=== PATIENT | male | born 1950 | race Caucasian/White ===

== ENCOUNTER 2024-09-09 16:13 | Emergency (ER) | payer OTHER, MEDICARE, SELFPAY ==
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
[2024-09-09 16:07] VITALS: BP 182/95; PULSE 63; RESP 18; TEMP 36.8; O2SAT 97
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
[2024-09-09 17:30] VITALS: BP 166/83; PULSE 53; RESP 15; O2SAT 94
--- OUTSIDE RECORDS SUMMARY | 2024-09-09 17:52 | XMS_ITS ---
Author Organization [facility] Office Address [address] [address] [place] [address] Care Team Providers Care Housekeeper Caregiver Name Role Phone Satya Porter Unavailable [phone] PROBLEMS Problem Type ICD Code Onset Dates Problem Status W/U Status Risk SNOMED Code Notes Problem Sleep apnea, unspecified (G47.30) Active confirmed Sleep apnea (96002269) Problem Pure hyperglyceridemia (E78.1) Active confirmed Pure hyperglyceridemia (963283859) Encounters Encounter Location Date Provider Diagnosis [facility] [address] [place] [address] 08/14/2024 Satya Porter Chronic kidney disea se, stage 3 unspecified N18.30 ; Proteinuria, unspecified R80.9 ; Renal osteodystrophy N25.0 ; Secondary hyperparathyroidism, not elsewhere classified E21.1 ; Urinary tract infection, site not specified N39.0 ; Type 2 diabetes mellitus with diabetic chronic kidney disease E11.22 ; Sleep apnea, unspecified G47.30 and Pure hyperglyceridemia E78.1 ASSESSMENTS Encounter Date Diagnosis Assessment Notes Treatment Notes Treatment Clinical Notes Section Notes 08/14/2024 Chronic kidney disease, stage 3 unspecified (ICD-10 - N18.30) 08/14/2024 Proteinuria, unspecified (ICD-10 - R80.9) 08/14/2024 Renal osteodystrophy (ICD-10 - N25.0) 08/14/2024 Secondary hyperparathyroidism, not elsewhere classified (ICD-10 - E21.1) 08/14/2024 Urinary tract infection, site not specified (ICD-10 - N39.0) 08/14/2024 Type 2 diabetes mellitus with diabetic chronic kidney disease (ICD-10 - E11.22) 08/14/2024 Sleep apnea, unspecified (ICD-10 - G47.30) 08/14/2024 Pure hyperglyceridemia (ICD-10 - E78.1) PLAN OF TREATMENT Next Appt Details Provider Name:Satya Porter , 11/13/2024 02:00:00 PM, [address] [facility], [place], [address], Progress Notes * AIDA BLUNTOB:1950 (74 yo M)Acc No.[id number]:08/14/2024 Progress Notes Patient: JOSSELYN BLUNT Provider: MD MACHELLE, F.A.C.P, F.A.S.N. :1950 Age:74 Y Sex:Male Date:08/14/2024 [place] [address] Subjective: * Chief Complaints: * * Medical History: Objective: Assessment: * Assessment: 1. Chronic kidney disease, stage 3 unspecified - N18.30 (Primary) 2. Proteinuria, unspecified - R80.9 3. Renal osteodystrophy - N25.0 4. Secondary hyperparathyroidism, not elsewhere classified - E21.1 5. Urinary tract infection, site not specified - N39.0 6. Type 2 diabetes mellitus with diabetic chronic kidney disease - E11.22 7. Sleep apnea, unspecified - G47.30 8. Pure hyperglyceridemia - E78.1 Plan: * Treatment: * Billing Information: * Visit Code: 92949 Office Visit, Est Pt., Level 4. * Procedure Codes: * Sign off status: Pending * Provider: MD MACHELLE, Heidi.Yaquelin.C.P, F.A.S.N. Date: 08/14/2024
--- OUTSIDE RECORDS SUMMARY | 2024-09-09 17:52 | XMS_ITS | Continuity of Care Document ---
Author Organization [facility] Address [address] [place] [address] Phone Care Team Providers Care Continuous Miner Operator Helper Name Role Phone Kar Ovalle MD Unavailable Unavailable Advance Directives Directive Yes / No Effective Date File Name No Information Encounters Encounter Description Practice Location Reason(s) For Visit Diagnoses Date Provider Providers Copied on Encounter [facility], [address], [place], [place], [address], [place] tel:[phone] [facility] No Information Vasquez Lakhani. [address] [place], [place], [address] , [place]. tel:[phone] Family History Family Member Type Diagnosis Age At Onset No Information Payers Payer name Insurance type Covered constitution party ID Authoriza tion(s) No Information Social History Type Description Quantity Date Captured Comments Sex Male Smoking Status No Information Chief Complaint And Reason For Visit No Information Reason For Referral Reason For Referral No Information History Of Present Illness Encounter Date Complaint History Of Prese nt Illness No Information Functional Status Date Functional Assessmen t No Information Instructions Date Instruction Additional Infor mation No Information Assessments Type Assessment Date No Information Patient Care Teams Name Effective Dates (start - stop) Status Members No Information
--- OUTSIDE RECORDS SUMMARY | 2024-09-09 17:52 | XMS_ITS ---
Author Organization [facility] Address [address] [place] [address] Care Team Providers Care Automotive Electrician Helper Name Role Phone GermanYonnySatya Unavailable [phone] MEDICATIONS Medication SIG (Take, Route, Frequency, Duration) Notes Start Date End Date Status Vitamin D (Ergocalciferol) 1.25 MG (16338 UT) TAKE 1 CAPSULE BY MOUTH ONCE A WEEK FOR 90 DAYS. for 90 Active Calcitriol 0.25 MCG TAKE 1 CAPSULE BY MO UTH EVERY DAY for 90 Active PROBLEMS Problem Type ICD Code Onset Dates Problem Status W/U Status Risk SNOMED Code Notes Problem Type 2 diabetes mellitus with diabetic chronic kidney disease (E11.22) Active confirmed Diabetic renal disease (315189442) Encounters Encounter Location Date Provider Diagnosis [facility] [address] [place] [address] 02/21/2024 Satya Porter Chronic kidney disea se, stage 3 unspecified N18.30 ; Type 2 diabetes mellitus with diabetic chronic kidney disease E11.22 ; Proteinuria, unspecified R80.9 ; Renal osteodystrophy N25.0 ; Secondary hyperparathyroidism, not elsewhere classified E21.1 ; Type 2 diabetes mellitus with hyperglycemia E11.65 and Urinary tract infection, site not specified N39.0 ASSESSMENTS Encounter Date Diagnosis Assessment Notes Treatment Notes Treatment Clinical Notes Section Notes 02/21/2024 Chronic kidney disease, stage 3 unspecified (ICD-10 - N18.30) 02/21/2024 Type 2 diabetes mellitus with diabetic chronic kidney disease (ICD-10 - E11.22) 02/21/2024 Proteinuria, unspecified (ICD-10 - R80.9) 02/21/2024 Renal osteodystrophy (ICD-10 - N25.0) 02/21/2024 Secondary hyperparathyroidism , not elsewhere classified (ICD-10 - E21.1) 02/21/2024 Type 2 diabetes mellitus with hyperglycemia (ICD-10 - E11.65) 02/21/2024 Urinary tract infection, site not specified (ICD-10 - N39.0) PLAN OF TREATMENT Next Appt Details Provider Name:Satya Porter , 11/13/2024 02:00:00 PM, [address] [facility], [place], [address], Progress Notes * AIDA BLUNTOB:1950 (74 yo M)Acc No.[id number]:02/21/2024 Progress Notes Patient: JOSSELYN BLUNT Provider: MD MACHELLE, Heidi.Yaquelin.C.P, F.A.S.N. :1950 Age:74 Y Sex:Male Date:02/21/2024 Address:[place] [address] Subjective: * Chief Complaints: * * Medical History: * Medications: Taking Vitamin D (Ergocalciferol) 1.25 MG (17029 UT) Capsule TAKE 1 CAPSULE BY MOUTH ONCE A WEEK FOR 90 DAYS. , Taking Calcitriol 0.25 MCG Capsule TAKE 1 CAPSULE BY MOUTH EVERY DAY Objective: Assessment: * Assessment: 1. Chronic kidney disease, stage 3 unspecified - N18.30 (Primary) 2. Type 2 diabetes mellitus with diabetic chronic kidney disease - E11.22 3. Proteinuria, unspecified - R80.9 4. Renal osteodystrophy - N25.0 5. Secondary hyperparathyroidism, not elsewhere classified - E21.1 6. Type 2 diabetes mellitus with hyperglycemia - E11.65 7. Urinary tract infection, site not specified - N39.0 Plan: * Treatment: * Billing Information: * Visit Code: 30816 Office Visit, Est Pt., Level 4. * Procedure Codes: * Sign off status: Pending * Provider: MD MACHELLE, Heidi.Yaquelin.C.P, F.A.S.N. Date: 02/21/2024
--- OUTSIDE RECORDS SUMMARY | 2024-09-09 17:52 | XMS_ITS | Data Portability ---
Author Organization [facility], Main Office Address [address] [place] [address] Care Team Providers Care Manager Art Name Role Phone ARMANDO CLARK Primary Care Provider ARMANDO CLARK Referring Provider Assessment Encounter Date Assessment Date Assessment LastModified by Organization Details LastModified Time 09/06/2022 09/06/2022 HPI: 72-year-old male came in today for evaluation of his right knee pain. His pain started last fall when he was golfing and stepped in a soft spot and twisted on the right knee. Since that time he has been having pain in anterior medial aspect of the right knee. Some days worse another. Days where he is on his feet for most the day he will have more pain at night. He is having no episodes of locking or catching in the knee. Patient is on Xarelto 20 mg daily also has chronic kidney disease and therefore unable to take anti-inflammatori es. He does take occasional Tylenol which does not seem to help. Patient has been using an [id number] compression sleeve on the knee and he feels that this does give him some relief. Patient has had no previous problems with the right knee. No previous surgeries or injuries. Physical exam: 72-year-old male alert. He walks with minimal limp. He is 5 ft 10 and 241 lb his BMI is 34.6. He has a mild effusion in the right knee. Hip range motion is full without discomfort. Moderate tenderness over the mid medial joint line, no lateral joint line tenderness. No tenderness over the posterior medial joint line. Minimal pain with patellofemoral grind. There is no increased swelling in either lower extremity. 2+ dorsalis pedis pulse in foot. After ChloraPrep was used on skin 20 mg Kenalog and 3 cc of 0.5% ropivacaine was injected into the right knee. Risk of infection discussed. Impression: 72-year-old male who has moderate medial compartment osteoarthritis on the PA flexion view. He did have a twisting injury last February and there is always the possibility he could have a meniscus tear causing his symptoms. I think this is less likely given his complaints of when he is having his symptoms. He is not a candidate for anti-inflammatori es. I discussed the option of cortisone injection which she would like to try today. After the injection he noticed very quick improvement of the symptoms in his knee from the ropivacaine. Hopefully once the cortisone starts to work he will have continued improvement of his symptoms. We talked about injections and these can be done every 3 months on an as-needed basis. I would like see him back in a month to make sure he is doing well. If he is doing very well he can call and cancel. 30 minutes was spent in treatment patient more half of this in [id number] conversation [email or web address] Not available 09/06/2022 11:10:22 Plan of Treatment Reminders Order Date Submit Date Provider Last Modified By Organization Details Last Modified Time Details Appointments None recorded. Lab None recorded. Referral None recorded. Procedures injection/a spiration joint/bursa (PROC) - in office procedure, administere d by provider 2022 023 [email or web address] In-Office Order, Internal Use Only DO Not Attach Compendium DO Not Attach Compendium, Do Not Delete/merge, [id number] 3 11:00:16 Surgeries None recorded. Imaging XR, knee 2022 023 [email or web address] [facility] [place], [address], [place], [address], 3 16:20:26 Medication Orders Kenalog 10 mg/mL suspension for injection 2022 023 [email or web address] [facility] [address], [address], 3 11:55:01 ropivacaine (PF) 5 mg/mL (0.5 %) injection solution 2022 023 [email or web address] [facility] [address] In [facility], [place], [address], 11:55:01 Patient TargetsNo targets recorded. Patient InstructionsNo instructions recorded. Reason for Referral None Reported. Results Created Date Observation Date Name Description Value Unit Range Abnormal Flag Note LastModifiedBy Organization Detail LastModifiedTime 09/07/19 23 XR, knee No observ ation record ed. [email or web address] [facility] [place] [address], [place], [address], 09/06/2022 11:07:05 Result Notes None recorded. Problems Name Problem SNOMED Code Status Onset Date Resolution Date Notes Provider Name and Address Organization Details Recorded Time Pain of right knee joint 686461572858747 Active 2022 YAZMIN Babin [employer] 09:47:22 Problem Notes None recorded. Procedures Surgical History Date Name Laterality Status Provider Name and Address Organization Details Recorded Time Carpal tunnel surgery completed YAZMIN Babin [facility] 09/06/2022 09:45:39 Imaging Results Imaging Date Name Status LastModified by Organiz ation Details LastModified Time 09/06/2022 XR, knee completed [email or web address] [facility] [place] [address], [place], [address], 09/06/2022 11:07:05 Procedure Notes None recorded. Medical Equipment None Reported. Allergies No known drug allergies Medications Name Sig Start Date Stop Date Status Note LastModified by Organization Details LastModified Time citalopram 40 mg tablet TAKE 1 TABLET BY MOUTH EVERY DAY active Not Available Not Available No t Available azithromyci n 250 mg tablet TAKE 2 TABLETS BY MOUTH TODAY, THEN TAKE 1 TABLET DAILY FOR 4 DAYS 09/06 completed Not Available Not Available Not Available tizanidine 4 mg tablet TAKE 1 TABLET BY MOUTH EVERY 6 HOURS NEEDED FOR MUSCLE SPASMS. 09/06 completed Not Available Not Available Not Available benzonatate 200 mg capsule TAKE 1 CAPSULE BY MOUTH THREE TIMES A DAY NEEDED FOR COUGH 09/06 completed Not Available Not Available Not Available prednisone 20 mg tablet TAKE 3 TABLETS DAILY FOR 5 DAYS THEN 2 TABS DAILY FOR 2 DAYS THEN 1 TAB DAILY FOR 2 DAYS 09/06 completed Not Available Not Available Not Available fluorouraci l 5 % topical cream APPLY TWICE A DAY X 4 WEEKS TO THE SCALP AND X 3 WEEKS TO THE SKIN IN FRONT AND BEHIND THE EARS 09/06 completed Not Available Not Available Not Available Zyrtec 10 mg tablet Take 1 tablet every day by oral route. active Not Available Not Available No t Available simvastatin 40 mg tablet TAKE 1 TABLET BY MOUTH EVERY DAY AT NIGHT active Not Available Not Available No t Available pramipexole 0.5 mg tablet TAKE 1 TO 2 TABLETS BY MOUTH EVERY DAY LATE IN THE AFTERNOON active Not Available Not Available No t Available amoxicillin 875 mg tablet TAKE 1 TABLET BY MOUTH TWICE A DAY FOR 10 DAYS 09/06 completed Not Available Not Available Not Available trazodone 100 mg tablet TAKE 1-2 TABLETS BY MOUTH NIGHTLY FOR INSOMNIA active Not Available Not Available No t Available Kenalog 10 mg/mL suspension for injection in office 2022 active [facility]: 0003- 0494- 20 Not Available Not Available Not Available buspirone 10 mg tablet TAKE 1 TABLET BY MOUTH TWICE A DAY active Not Available Not Available No t Available gabapentin 300 mg capsule TAKE 1 CAPSULE BY MOUTH THREE TIMES A DAY active Not Available Not Available No t Available ergocalcife rol (vitamin D2) 1,250 mcg (50,000 unit) capsule TAKE 1 CAPSULE BY MOUTH ONCE A WEEK FOR 90 DAYS. active Not Available Not Available No t Available calcitriol 0.25 mcg capsule TAKE 1 CAPSULE BY MOUTH EVERY DAY active Not Available Not Available No t Available amoxicillin 875 mg-potassiu m clavulanate 125 mg tablet TAKE 1 TABLET BY MOUTH TWICE A DAY FOR 10 DAYS 09/06 completed Not Available Not Available Not Available Tylenol 650 mg tablet,exte nded release Take 2 tablets every 8 hours by oral route. active Not Available Not Available No t Available Fish Oil active Not Available Not Avai lable Not Available PreserVisio n AREDS active Not Available Not Available Not Available Xarelto active Not Available Not Avail able Not Available ropivacaine (PF) 5 mg/mL (0.5 %) injection solution in office 2022 active Not Available Not Available Not Avai lable Vitals Date Recorded Body height Body mass index (BMI) Body weight Provider Name and Address Organization Details Last Updated DateTime 09/06/2022 177.8 cm 34.6 kg/m2 635276.76 g YAZMIN Babin [facility] [email or web address] [facility] 09/06/2022 09:50:02 Social History Question Answer Notes LastModified by Organizat ion Details LastModified Time Tobacco Smoking Status Never Smoker YAZMIN Babin null, [facility] [email or web address] [facility] 09/06/2022 09:45:29 What Is Your Level Of Alcohol Consumption? Moderate [email or web address] Information not available 09/06/2022 Sex: Unknown Functional Status None recorded. Mental Status None recorded. Family History Relationship Description Onset Age of this Age Resolved Age Notes LastModified by Organization Details LastModified Time Mother Family history of stroke [email or web address] Not available 2022 09:44:29 Mother Hypertensive disorder [email or web address] Not available 2022 09:44:45 Brother Diabetes mellitus Not available 2022 09:45:10 Maternal Grandmother Diabetes mellitus Not available 2022 09:45:10 Medical History Condition Response USE OF BLOOD THINNERS Y SKIN PROBLEMS Y STROKE/TIA Y Past Encounters Encounter ID Performer Location Encounter Start Date Encounter Closed Date Diagnosis/Indication Diagnosis SNOMED-CT Code Diagnosis ICD10 Code Diagnosis Note [id number] VASILIY Loza [facility] [place] [address] [place] [address] 09/06/2022 09:15:23 09/06/2022 11:24:34 Pain of right knee joint 2857392102 52964 M25.561 Health Concerns Section Related Observation LastModified by Organization Detai ls LastModified Time None Recorded Concern Status LastModified by Organization Details LastModified Time None Recorded Advance Directives Directive None Recorded Payers Encounter Date Sequence Insurance Name Policy Number Policy Dunham Covered Member ID Dunham Member ID Guarantor Name 09/06/2022 1 [place] Panfilo Conrad [id number] Panfilo Conrad 09/06/2022 2 [employer] (MEDICARE SUPPLEMENT) Panfilo Conrad [id number] Panfilo Conrad
--- OUTSIDE RECORDS SUMMARY | 2024-09-09 17:52 | XMS_ITS ---
Author Organization [facility] Address [address] [facility] [address] [place] [address] Care Team Providers Care Financial Officer Name Role Phone Satya Porter Unavailable [phone] MEDICATIONS Medication SIG (Take, Route, Frequency, Duration) Notes Start Date End Date Status Vitamin D (Ergocalciferol) 1.25 MG (60800 UT) TAKE 1 CAPSULE BY MOUTH ONCE A WEEK FOR 90 DAYS. for 90 Active Calcitriol 0.25 MCG TAKE 1 CAPSULE BY [place] UTH EVERY DAY for 90 Active Encounters Encounter Location Date Provider Diagnosis Stalin Jeffries [address] [place] [address] 05/08/2024 Satya Porter Chronic kidney disea se, stage 3 unspecified N18.30 ; Type 2 diabetes mellitus with hyperglycemia E11.65 ; Renal osteodystrophy N25.0 and Proteinuria, unspecified R80.9 ASSESSMENTS Encounter Date Diagnosis Assessment Notes Treatment Notes Treatment Clinical Notes Section Notes 05/08/2024 Chronic kidney disease, stage 3 unspecified (ICD-10 - N18.30) 05/08/2024 Type 2 diabetes mellitus with hyperglycemia (ICD-10 - E11.65) 05/08/2024 Renal osteodystrophy (ICD-10 - N25.0) 05/08/2024 Proteinuria, unspecified (ICD-10 - R80.9) PLAN OF TREATMENT Next Appt Details Provider Name:Satya German , 11/13/2024 02:00:00 PM, [address], [place], [address], Progress Notes * AIDA BLUNTOB:1950 (74 yo M)Acc No.[id number]:05/08/2024 Progress Notes Patient: JOSSELYN BLUNT Provider: MD MACHELLE, F.A.C.P, F.A.S.N. :1950 Age:74 Y Sex:Male Date:05/08/2024 Address:[address] [place] [address] Subjective: * Chief Complaints: * * Medical History: * Medications: Taking Vitamin D (Ergocalciferol) 1.25 MG (20166 UT) Capsule TAKE 1 CAPSULE BY MOUTH ONCE A WEEK FOR 90 DAYS. , Taking Calcitriol 0.25 MCG Capsule TAKE 1 CAPSULE BY MOUTH EVERY DAY Objective: Assessment: * Assessment: 1. Chronic kidney disease, stage 3 unspecified - N18.30 (Primary) 2. Type 2 diabetes mellitus with hyperglycemia - E11.65 3. Renal osteodystrophy - N25.0 4. Proteinuria, unspecified - R80.9 Plan: * Treatment: * Billing Information: * Visit Code: [id number] Office Visit, Est Pt., Level 4. * Procedure Codes: * Sign off status: Pending * Provider: MD MACHELLE, Heidi.Maria RP, F.A.S.N. Date: 05/08/2024
--- OUTSIDE RECORDS SUMMARY | 2024-09-09 17:52 | XMS_ITS | Encounter Summary ---
Author Organization [facility] Address [address] [facility] [address] [place] [address] Care Team Providers Care Banking Assistant Name Role Phone Marlen Rashid HOUSE DECORATOR Primary Care Provider [phone] Joanne Olson HOUSE DECORATOR Primary Care Provider [phone] James Ram MD Unavailable [phone] Dina Gamino MD Unavailable Iker Connell MD Unavailable [phone] Satya Porter MD Unavailable [phone] Jennifer Porter MD Unavailable Davian Rios MD Primary Care Provide r Rey Meier MD Unavailable [phone] Karoline Prather MD, Robbi Arriaga Unavailable [phone] Darius Camp MD Unavailable [phone] Merlyn Quinn MD Unavailable [phone] Pete Elliott MD Unavailable [phone] Encounter Details Date Type Department Care Team (Late st Contact Info) Description 01/26/2012 Orders Only [facility] [address] [place] [address] Scanning, Provider Social History Tobacco Use Types Packs/Day Years Used Date Smoking Tobacco: Never Assessed Sex and Gender Information Value Date Recorded Sex Assigned at Not on file 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 Gender Identity Male 10/24/2019 10:41 AM CDT Sexual Orientation Straight 10/24/2019 10 :41 AM CDT documented as of this encounter Plan of Treatment Upcoming Encounters Date Type Department Care Team (Late st Contact Info) Description 02/17/2025 8:30 AM CDT Hospital Encounter [facility] [address] [place] [address] [place] [address] [address] 02/17/2025 8:30 AM CDT - 02/17/2025 9:00 AM CDT Surgery [facility] [address] [place] [address] [place] [address] [id number] COLONOSCOPY Scheduled Procedures Name Priority Associated Diagnoses Date/Ti me COLONOSCOPY Personal history of colon polyps, unspecified 02/17/2025 8:30 AM CDT documented as of this encounter Procedures Procedure Name Priority Date/Time Associated Diagnosis Comments GI - RESULT 01/26/2012 documented in this encounter Results * GI - RESULT (01/26/2012) Anatomical Region Laterality Modality Other us Provider Scanning Final Result documented in this encounter Visit Diagnoses Not on filedocumented in this encounter Additional Health Concerns Infection Onset Date Last Indicated Resolved Time MRSA Comment:knee 12/09/09 02/15/2011 02/15/2011 01/12/2021 5:00 AM CDT C. difficile Comment:Feces+ 11/19/11; no recent diarrhea, removed 06/28/18 KM 11/20/2011 11/20/2011 06/28/2018 7 :39 AM ARCHITECTURAL MODEL MAKER COVID: Suspected 06/27/2022 06/27/2022 06/27/2022 12:58 PM ARCHITECTURAL MODEL MAKER COVID: Suspected 05/20/2023 05/20/2023 05/20/2023 12:57 PM ARCHITECTURAL MODEL MAKER documented as of this encounter Care Teams Banking Assistant Relationship Specialty Start Date End Date Marlen Rashid HOUSE DECORATOR [address] [address] PCP - General 06/09/11 05/13/14 Joanne Olson HOUSE DECORATOR [address] [address] PCP - General Family Medicine 02/04/18 07/12/21 [place] [address] [address] PCP - General Family Medicine 07/13/21 James Ram MD [address] [place] [address] Referring Physician Ophthalmology 03/12/18 Dina Gamino MD [address] [place] [address] Consulting Physician Neurology 10/24/18 Iker Connell MD [address] [place] [address] Consulting Physician Cardiology 01/23/20 04/14/20 Satya Porter MD [address] [place] [address] Consulting Physician Nephrology 01/23/20 Jennifer Porter MD [address] [place] [address] Consulting Physician Cardiology 02/13/20 Rey Meier MD [address] [place] [address] Consulting Physician Ophthalmology 12/22/21 Robbi Ramey Jr., MD [address] [facility] [address] [place] [address] Dermatology 12/22/21 Darius Camp MD [address] [place] [address] Consulting Physician Orthopedic Surgery 09/10/22 [place] [address] [facility] [address] [place] [address] Consulting Physician Pulmonary Disease 01/02/24 Pete Elliott MD [address] [place] [address] Consulting Physician Ophthalmology 03/20/24 documented as of this encounter
--- OUTSIDE RECORDS SUMMARY | 2024-09-09 17:52 | XMS_ITS | Patient Health Record ---
Author Organization [facility] Address [address] [place] [address] Care Team Providers Care Home And School Visitor Name Role Phone German Satya Unavailable [phone] REASON FOR REFERRAL No Information MEDICATIONS Medication SIG (Take, Route, Frequency, Duration) Notes Start Date End Date Status Vitamin D (Ergocalciferol) 1.25 MG (47543 UT) TAKE 1 CAPSULE BY MOUTH ONCE A WEEK FOR 90 DAYS. for 90 Active Calcitriol 0.25 MCG TAKE 1 CAPSULE BY [place] UTH EVERY DAY for 90 Active PROBLEMS Problem Type ICD Code Onset Dates Problem Status W/U Status Risk SNOMED Code Notes Problem Type 2 diabetes mellitus with diabetic chronic kidney disease (E11.22) Active confirmed Diabetic renal disease (465075279) Problem Secondary hyperparathyroidism , not elsewhere classified (E21.1) Active confirmed Secondary hyperparathyroidism (45073186) Problem Pure hyperglyceridemia (E78.1) Active confirmed Pure hyperglyceridemia (856678672) Problem Sleep apnea, unspecified (G47.30) Active confirmed Sleep apnea (66065249) Problem Renal osteodystrophy (N25.0) Active confirmed Renal osteodyst rophy (62473916) Problem Urinary tract infection, site not specified (N39.0) Active confirmed Urinary tr act infectious disease (disorder) (27815293) Problem Proteinuria, unspecified (R80.9) Active confirmed Proteinu arsen (54097465) Problem Chronic kidney disease, stage 3 unspecified (N18.30) Active confirmed Chronic kidney disease stage 3 (disorder) (276818764) Encounters Encounter Location Date Provider Diagnosis Stalin Jeffries [address] [place] [address] 10/25/2023 Satya Porter Chronic kidney disea se, stage 3 unspecified N18.30 ; Proteinuria, unspecified R80.9 ; Renal osteodystrophy N25.0 ; Secondary hyperparathyroidism, not elsewhere classified E21.1 ; Type 2 diabetes mellitus with hyperglycemia E11.65 and Urinary tract infection, site not specified N39.0 [facility] [address] [place] [address] 02/21/2024 Satya Porter Chronic kidney disea se, stage 3 unspecified N18.30 ; Type 2 diabetes mellitus with diabetic chronic kidney disease E11.22 ; Proteinuria, unspecified R80.9 ; Renal osteodystrophy N25.0 ; Secondary hyperparathyroidism, not elsewhere classified E21.1 ; Type 2 diabetes mellitus with hyperglycemia E11.65 and Urinary tract infection, site not specified N39.0 Stalin Jeffries [address] [place] [address] 05/08/2024 Satya Porter Chronic kidney disea se, stage 3 unspecified N18.30 ; Type 2 diabetes mellitus with hyperglycemia E11.65 ; Renal osteodystrophy N25.0 and Proteinuria, unspecified R80.9 Stalin Jeffries [address] [place] [address] 08/14/2024 Satya Porter Chronic kidney disea se, [...] Treatment Notes Treatment Clinical Notes Section Notes 10/25/2023 Chronic kidney disease, stage 3 unspecified (ICD-10 - N18.30) 02/21/2024 Type 2 diabetes mellitus with diabetic chronic kidney disease (ICD-10 - E11.22) 02/21/2024 Chronic kidney disease, stage 3 unspecified (ICD-10 - N18.30) 05/08/2024 Type 2 diabetes mellitus with hyperglycemia (ICD-10 - E11.65) 05/08/2024 Chronic kidney disease, stage 3 unspecified (ICD-10 - N18.30) 08/14/2024 Chronic kidney disease, stage 3 unspecified (ICD-10 - N18.30) 08/14/2024 Proteinuria, unspecified (ICD-10 - R80.9) 02/21/2024 Proteinuria, unspecified (ICD-10 - R80.9) 05/08/2024 Renal osteodystrophy (ICD-10 - N25.0) 10/25/2023 Proteinuria, unspecified (ICD-10 - R80.9) 10/25/2023 Renal osteodystrophy (ICD-10 - N25.0) 05/08/2024 Proteinuria, unspecified (ICD-10 - R80.9) 02/21/2024 Renal osteodystrophy (ICD-10 - N25.0) 08/14/2024 Renal osteodystrophy (ICD-10 - N25.0) 08/14/2024 Secondary hyperparathyroidism, not elsewhere classified (ICD-10 - E21.1) 02/21/2024 Secondary hyperparathyroidism, not elsewhere classified (ICD-10 - E21.1) 10/25/2023 Secondary hyperparathyroidism, not elsewhere classified (ICD-10 - E21.1) 10/25/2023 Type 2 diabetes mellitus with hyperglycemia (ICD-10 - E11.65) 08/14/2024 Urinary tract infection, site not specified (ICD-10 - N39.0) 02/21/2024 Type 2 diabetes mellitus with hyperglycemia (ICD-10 - E11.65) 02/21/2024 Urinary tract infection, site not specified (ICD-10 - N39.0) 08/14/2024 Type 2 diabetes mellitus with diabetic chronic kidney disease (ICD-10 - E11.22) 10/25/2023 Urinary tract infection, site not specified (ICD-10 - N39.0) 08/14/2024 Sleep apnea, unspecified (ICD-10 - G47.30) 08/14/2024 Pure hyperglyceridemia (ICD-10 - E78.1) PLAN OF TREATMENT Next Appt Details Provider Name:Satya Porter , 11/13/2024 02:00:00 PM, [address] , [place], [address],
--- OUTSIDE RECORDS SUMMARY | 2024-09-09 17:53 | XMS_ITS | Clinical Summary ---
Author Organization [facility] [address] [place] [id number] Care Team Providers Care Brain Wave Technician Name Role Phone James Ram MD Unavailable [phone] Dina Gamino MD Unavailable Satya Porter MD Unavailable [phone] Jennifer Porter MD Unavailable Davian Rios MD Primary Care Provide r Rey Meier MD Unavailable [phone] Karoline Prather MD, Robbi Arriaga Unavailable [phone] Darius Camp MD Unavailable [phone] Merlyn Quinn MD Unavailable Pete Elliott MD Unavailable [phone] Allergies Active Allergy Reactions Criticality Noted Date Comments Clindamycin Other (See comments) Low C.diff Medications omega-3 fatty acids-fish oil 340-1,000 mg capsule take one capsule qd 0 0 0 Active vit A/vit C/vit E/zinc/copper (PRESERVISION AREDS ORAL) Take by mouth 2 (two) times a day Active calcitRIOL (ROCALTROL) 0.25 mcg capsule Take by mouth daily 0 Active rivaroxaban (XARELTO) 20 mg tablet Take 1 tablet (20 mg total) by mouth daily 0 Active ergocalciferol (VITAMIN D) 50,000 unit capsule TAKE 1 CAPSULE BY MOUTH ONCE A WEEK FOR 90 DAYS 2 Active albuterol HFA (PROVENTIL HFA,VENTOLIN HFA,PROAIR HFA) 90 mcg/actuation inhaler TAKE 2 PUFFS BY MOUTH EVERY 4 TO 6 HOURS NEEDED 3 Active fluticasone-um eclidin-vilant er (Trelegy Ellipta) 100-62.5-25 mcg inhaler 4 Active tamsulosin (FLOMAX) 0.4 mg extended release capsule Take 1 capsule (0.4 mg total) by mouth nightly 4 Active empagliflozin (JARDIANCE) 25 mg tablet 1 tablet (25 mg total) Active SUMAtriptan (IMITREX) 50 mg tabletIndicati ons:Migraine TAKE 1 TABLET (50 MG TOTAL) BY MOUTH ONCE NEEDED FOR MIGRAINE MAY REPEAT AFTER 2 HOURS. 27 tablet 4 4 025 Active traZODone (DESYREL) 100 mg tablet TAKE 1-2 TABLETS BY MOUTH NIGHTLY FOR INSOMNIA 180 tablet 3 5 Active gabapentin (NEURONTIN) 300 mg capsuleIndicat ions:Restless Legs Syndrome TAKE 1 AT NOON AND 2 AT 6PM. 270 capsule 1 5 Active tiZANidine (ZANAFLEX) 4 mg tablet Take 1 tablet (4 mg total) by mouth every 6 (six) hours as needed for muscle spasms 30 tablet 3 5 Active citalopram (CeleXA) 40 mg tablet TAKE 1 TABLET BY MOUTH EVERY DAY 90 tablet 4 5 Active polyethylene glycol (GoLYTELY) 236-22.74-6.74 -5.86 gram solutionIndica tions:Bowel Evacuation Mix as directed. At 4:00 pm, begin drinking one half of the mixed solution; you will have until 7:00 pm to finish. At 10 pm drink the second half of the mixed solution, you have till midnight to finish. 4000 mL 5 Active bisacodyl EC (DULCOLAX EC) 5 mg EC tablet At 7 pm, take all four tablets at once with a glass of water. 4 tablet 5 Active busPIRone (BUSPAR) 10 mg tablet TAKE 1 TABLET BY MOUTH TWICE A DAY 180 tablet 4 5 Active pramipexole (MIRAPEX) 0.5 mg tablet TAKE 1 TAB BY MOUTH AT NOON AND 2 TABS AT 6PM 270 tablet 3 5 Active simvastatin (ZOCOR) 40 mg tablet TAKE 1 TABLET BY MOUTH EVERY DAY AT NIGHT 90 tablet 1 5 Active simvastatin (ZOCOR) 40 mg tablet Take 1 tablet (40 mg total) by mouth nightly 100 tablet 4 025 Discontinued Active Problems Problem Noted Date Diagnosed Date Personal history of colon polyps, unspecified BELLA (generalized anxiety disorder) 06/30/2024 Assessment & Plan (06/30/2024 1:47 PM STAGE PRODUCER): Controlled/stable, continue current management Continue current medical therapy including Celexa and buspirone Migraine without aura and wi thout status migrainosus, not intractable 06/30/2024 Assessment & Plan (06/30/2024 1:49 PM STAGE PRODUCER): Migraines decreasing in frequency Still treatable and responsive to Imitrex p.r.n. for abortive therapy Patient has also noticed and try to limit triggers including bright lights and eye strain Legally blind 06/30/2024 Assessment & Plan (06/30/2024 1:46 PM STAGE PRODUCER): Controlled/stable, continue current management Follow-up with Ophthalmology Benign hypertensive kidney d isease with chronic kidney disease stage I through stage IV, or unspecified(403.10) 06/30/2024 Assessment & Plan (06/30/2024 1:50 PM STAGE PRODUCER): BP Readings from Last 3 Encounters: 06/30/24 134/75 05/16/24 112/63 12/18/23 119/61 Controlled/stable, continue current management Continue Jardiance Follow up with Nephrology Stage 3a chronic kidney disease 06/30/2024 Assessment & Plan (06/30/2024 1:47 PM STAGE PRODUCER): Follow up with Nephrology COPD (chronic obstructive pulmonary disease) 11/2023 Assessment & Plan (06/30/2024 1:49 PM STAGE PRODUCER): Controlled/stable, continue current management Follow up with Pulmonary Continue current treatment including Trelegy for daily maintenance and albuterol p.r.n. for acute symptoms BPH (benign prostatic hyperplasia) 12/19/2023 Assessment & Plan (06/30/2024 1:50 PM STAGE PRODUCER): Stable - symptoms controlled with Flomax Monitor PSA Lab Results Component Value Date PSA 0.73 07/09/2023 PSA 0.64 03/01/2023 PSA 0.67 06/19/2022 Implantable loop recorder present 10/24/2022 Assessment & Plan (06/30/2024 1:45 PM STAGE PRODUCER): Follow up with Cardiology Osteoarthritis of right knee 09/10/2022 Borderline diabetes mellitus 07/13/2021 Assessment & Plan (06/30/2024 1:45 PM STAGE PRODUCER): Monitored by Nephrology with A1c every 3-6 months Stable - monitor Focus on therapeutic lifestyle changes - diet/exercise - to maintain normal sugar levels and prevent progression to diabetes Continue Jardiance Encounter for screening for cardiovascular disor ders 02/23/2020 Atrial flutter 01/26/2020 Assessment & Plan (06/30/2024 1:45 PM STAGE PRODUCER): Controlled/stable, continue current management Follow up with Cardiology for management recommendations At this time the patient appears stable with Xarelto for anticoagulation/stroke risk reduction but he is not on any current rhythm or rate control medication Assessment & Plan (10/18/2020 8:14 AM CDT): On Xarelto for CVA prophylaxis. Rhythm is regular on exam today. Has loop monitor in place Recommend continuing follow up with cardiology. Assessment & Plan (04/15/2020 10:40 AM STAGE PRODUCER): On Xarelto for CVA prophylaxis. Rhythm is regular on exam today- bradycardic. Recommend continuing follow up with cardiology. H/O: CVA (cerebrovascular accident) 10/27/2019 Overview (10/14/2020): 2009 continue statin and Xarelto Assessment & Plan (06/30/2024 1:48 PM STAGE PRODUCER): Continue statin therapy for secondary prevention Continue Xarelto for anticoagulation Antiplatelet therapy contraindicated due to bleeding risk with concurrent anticoagulation Follow-up with Cardiology PFO (patent foramen ovale) 10/27/2019 Assessment & Plan (06/30/2024 1:45 PM STAGE PRODUCER): Follow up with Cardiology Assessment & Plan (10/18/2020 8:14 AM CDT): Continue regular cardiology follow up. RBBB 10/23/2019 Assessment & Plan (06/30/2024 1:45 PM STAGE PRODUCER): Follow up with Cardiology Assessment & Plan (10/23/2019 12:17 PM CDT): Recommended cardiology consultation. Discussed warning signs of when to seek emergency care for chest pain including chest pain that does not go away, severe in nature, associated dizziness, shortness of breath or fatigue. Bradycardia 10/14/2019 Assessment & Plan (06/30/2024 1:45 PM STAGE PRODUCER): Follow up with Cardiology Assessment & Plan (04/15/2020 10:39 AM STAGE PRODUCER): Continue regular follow up with cardiology. Assessment & Plan (10/14/2019 1:52 PM CDT): Recommend further cardiac evaluation given bradycardia after episodes of syncope. Medicare annual wellness visit, subsequent 09/04 Assessment & Plan (10/18/2020 8:11 AM CDT): -Discussed recommendations for exercise at least 30 minutes moderate/vigorous exercise most days of the week. (150 minutes minimum) -Discussed MyPlate recommendations and increasing fruits and vegetables. -Cancer screening: recommended colon cancer screening- due 2023 and prostate cancer screening with PSA annually, lung cancer screening with low dose CT annually due 02/2021. -Immunizations:Recommend Shingrix (not covered by his insurance), yearly influenza vaccines -Continue routine dental and vision care. -Labs ordered today: Screen for lipid disorders: Lipid profile Discussed importance of advanced care directive in detail today. Assessment & Plan (10/14/2019 1:54 PM CDT): See patient plan. Discussed importance of advanced care directive in detail today. Assessment & Plan (09/04/2018 4:55 PM CDT): See patient plan. Discussed importance of advanced care directive in detail today. Former smoker 09/04/2018 Encounter for screening for lung cancer 09/05/19 Assessment & Plan (10/18/2020 8:11 AM CDT): The patient is between 55 and 77 years old and has smoked at least 30 pack years. The patient is either current smoker has quit within the last 15 years. It is recommended for the patient have a low dose CT scan for lung cancer screening. Has been counseled regarding the importance of tobacco cessation and abstinence. Shared decision making during this office visit included discussion of benefits and harms of screening, possible future recommendations of follow-up diagnostic testing, and total amount of radiation exposure. The patient was recommended to have an annual low dose CT scan for lung cancer screening and is willing to undergo diagnosis and treatment. Assessment & Plan (10/14/2019 1:53 PM CDT): The patient is between 55 and 77 years old and has smoked at least 30 pack years. The patient is either current smoker has quit within the last 15 years. It is recommended for the patient have a low dose CT scan for lung cancer screening. Has been counseled regarding the importance of tobacco cessation and abstinence. Shared decision making during this office visit included discussion of benefits and harms of screening, possible future recommendations of follow-up diagnostic testing, and total amount of radiation exposure. The patient was recommended to have an annual low dose CT scan for lung cancer screening and is willing to undergo diagnosis and treatment. Assessment & Plan (09/04/2018 4:55 PM CDT): The patient is between 55 and 77 years old and has smoked at least 30 pack years. The patient is either current smoker has quit within the last 15 years. It is recommended for the patient have a low dose CT scan for lung cancer screening. Has been counseled regarding the importance of tobacco cessation and abstinence. Shared decision making during this office visit included discussion of benefits and harms of screening, possible future recommendations of follow-up diagnostic testing, and total amount of radiation exposure. The patient was recommended to have an annual low dose CT scan for lung cancer screening and is willing to undergo diagnosis and treatment. Personal history of nicotine dependence 09/05/19 19 Assessment & Plan (10/18/2020 8:11 AM CDT): The patient is between 55 and 77 years old and has smoked at least 30 pack years. The patient is either current smoker has quit within the last 15 years. It is recommended for the patient have a low dose CT scan for lung cancer screening. Has been counseled regarding the importance of tobacco cessation and abstinence. Shared decision making during this office visit included discussion of benefits and harms of screening, possible future recommendations of follow-up diagnostic testing, and total amount of radiation exposure. The patient was recommended to have an annual low dose CT scan for lung cancer screening and is willing to undergo diagnosis and treatment. Assessment & Plan (09/04/2018 4:55 PM CDT): Discussed lung CT and AAA screening due to his smoking history. Macular degeneration of both eyes 09/04/2018 Assessment & Plan (06/30/2024 1:46 PM STAGE PRODUCER): Controlled/stable, continue current management Follow-up with Ophthalmology Assessment & Plan (10/18/2020 8:12 AM CDT): Continue regular appointment with ophthalmology. Assessment & Plan (2019 4:47 PM CDT): Recommended follow-up with Ophthalmology. Assessment & Plan (09/04/2018 4:56 PM CDT): Recommended follow-up with Ophthalmology. Screen for colon cancer 05/31/2018 Overview (05/31/2018): Added automatically from request for surgery [id number] History of colon polyps 03/12/2018 Assessment & Plan (09/04/2018 4:55 PM CDT): Next colonoscopy due in 2023 Mixed hyperlipidemia 04/12/2017 Assessment & Plan (06/30/2024 1:44 PM STAGE PRODUCER): Continue statin therapy Assessment & Plan (10/18/2020 8:09 AM CDT): Lipid abnormalities are unchanged. Nutritional counseling was provided., Pharmacotherapy as ordered. and continue Simvastatin 40 mg daily Lipids due today Lipids will be reassessed in 6 months. Assessment & Plan (04/15/2020 10:38 AM STAGE PRODUCER): Lipid abnormalities are unchanged. Nutritional counseling was provided., Pharmacotherapy as ordered. and continue Simvastatin 40 mg daily Lipids due September 2020 Lipids will be reassessed in 6 months. Assessment & Plan (01/23/2020 10:35 AM CDT): Lipid abnormalities are unchanged. Nutritional counseling was provided., Pharmacotherapy as ordered. and continue Simvastatin 40 mg daily Lipids due September 2020 Lipids will be reassessed in 6 months. Assessment & Plan (10/14/2019 1:54 PM CDT): Lipid abnormalities are unchanged. Nutritional counseling was provided., Pharmacotherapy as ordered. and continue Simvastatin 40 mg daily Lipids will be reassessed in 6 months. Assessment & Plan (2019 4:47 PM CDT): Lipid abnormalities are unchanged. Nutritional counseling was provided., Pharmacotherapy as ordered. and continue Simvastatin 40 mg daily Lipids will be reassessed in 6 months. Assessment & Plan (09/03/2018 4:18 PM CDT): Lipid abnormalities are unchanged. Nutritional counseling was provided., Pharmacotherapy as ordered. and continue Simvastatin 40 mg daily, repeat lipids in 02/2019 Lipids will be reassessed 02/2019. Assessment & Plan (11/15/2017 8:03 AM CDT): Lipid abnormalities are well controlled. . Pharmacotherapy as ordered. Will continue the simvastatin. Lipids will be reassessed in 3 months. Assessment & Plan (07/15/2017 1:08 PM STAGE PRODUCER): Lipid abnormalities are controlled with treatment. Pharmacotherapy as ordered. Lipids will be reassessed in 3 months. Assessment & Plan (04/12/2017 9:27 AM STAGE PRODUCER): Lipid abnormalities are well controlled with statin. . Pharmacotherapy as ordered. Lipids will be reassessed in 3 months. Obesity (BMI 30-39.9) 10/30/2016 Overview (10/30/2016): Has lost 40lbs since last Ov. Encouraged to continue exercise and diet. Assessment & Plan (10/18/2020 8:08 AM CDT): Obesity is worsening. Discussed the patient's BMI. The BMI is above average; BMI management plan is completed. General weight loss/lifestyle modification strategies discussed (elicit support from others; identify saboteurs; non-food rewards, etc). Diet interventions: moderate (500 kCal/d) deficit diet. Informal exercise measures discussed, e.g. taking stairs instead of elevator. Continue regular exercise. Assessment & Plan (04/15/2020 10:38 AM STAGE PRODUCER): Obesity is unchanged. Discussed the patient's BMI. The BMI is above average; BMI management plan is completed. General weight loss/lifestyle modification strategies discussed (elicit support from others; identify saboteurs; non-food rewards, etc). Diet interventions: moderate (500 kCal/d) deficit diet. Informal exercise measures discussed, e.g. taking stairs instead of elevator. Continue regular exercise. Assessment & Plan (01/23/2020 10:35 AM CDT): Obesity is worsening. Discussed the patient's BMI. The BMI is above average; BMI management plan is completed. General weight loss/lifestyle modification strategies discussed (elicit support from others; identify saboteurs; non-food rewards, etc). Behavioral treatment: stress management. Diet interventions: moderate (500 kCal/d) deficit diet. Informal exercise measures discussed, e.g. taking stairs instead of elevator. Regular aerobic exercise program discussed. Assessment & Plan (10/14/2019 1:55 PM CDT): Obesity is improving with lifestyle modifications. Discussed the patient's BMI. The BMI is above average; BMI management plan is completed. General weight loss/lifestyle modification strategies discussed (elicit support from others; identify saboteurs; non-food rewards, etc). Behavioral treatment: stress management. Diet interventions: moderate (500 kCal/d) deficit diet. Informal exercise measures discussed, e.g. taking stairs instead of elevator. Regular aerobic exercise program discussed. Assessment & Plan (2019 4:47 PM CDT): Obesity is worsening. Discussed the patient's BMI. The BMI is above average; BMI management plan is completed. General weight loss/lifestyle modification strategies discussed (elicit support from others; identify saboteurs; non-food rewards, etc). Behavioral treatment: stress management. Diet interventions: moderate (500 kCal/d) deficit diet. Informal exercise measures discussed, e.g. taking stairs instead of elevator. Regular aerobic exercise program discussed. Assessment & Plan (09/03/2018 4:17 PM CDT): Obesity is unchanged. Discussed the patient's BMI. The BMI is above average; BMI management plan is completed. General weight loss/lifestyle modification strategies discussed (elicit support from others; identify saboteurs; non-food rewards, etc). Behavioral treatment: stress management. Diet interventions: moderate (500 kCal/d) deficit diet. Informal exercise measures discussed, e.g. taking stairs instead of elevator. Regular aerobic exercise program discussed. Assessment & Plan (11/15/2017 8:04 AM CDT): Obesity is unchanged. Discussed the patient's BMI. The BMI is above average; BMI management plan is completed. General weight loss/lifestyle modification strategies discussed (elicit support from others; identify saboteurs; non-food rewards, etc). Assessment & Plan (07/15/2017 1:10 PM STAGE PRODUCER): Obesity is improving with lifestyle modifications. Discussed the patient's BMI. The BMI is above average; BMI management plan is completed. General weight loss/lifestyle modification strategies discussed (elicit support from others; identify saboteurs; non-food rewards, etc). Assessment & Plan (04/12/2017 9:27 AM STAGE PRODUCER): Obesity is unchanged. Discussed the patient's BMI. The BMI is above average; BMI management plan is completed. General weight loss/lifestyle modification strategies discussed (elicit support from others; identify saboteurs; non-food rewards, etc). Assessment & Plan (10/30/2016 3:04 PM CDT): Obesity is improving with treatment. Counseling was provided to the child and family regarding physical activity. General weight loss/lifestyle modification strategies discussed (elicit support from others; identify saboteurs; non-food rewards, etc). Restless legs syndrome 07/01/2013 Overview (08/31/2016): Restless leg syndrome Assessment & Plan (06/30/2024 1:48 PM STAGE PRODUCER): Controlled/stable, continue current management Continue current medical therapy including trazodone, Mirapex and gabapentin Assessment & Plan (10/18/2020 8:08 AM CDT): Continue ropinirole per sleep medicine. Recommended taking on time to avoid side effects. Assessment & Plan (10/14/2019 1:56 PM CDT): Continue weaning down on ropinirole per sleep medicine. Assessment & Plan (2019 4:49 PM CDT): Continue weaning down on ropinirole per sleep medicine. Assessment & Plan (11/15/2017 8:03 AM CDT): Controlled with ropinirole 5 mg Assessment & Plan (07/15/2017 1:09 PM STAGE PRODUCER): Well controlled at this time. Assessment & Plan (04/12/2017 10:12 AM STAGE PRODUCER): Controlled with current treatment regimen. Assessment & Plan (10/30/2016 2:58 PM CDT): Continue with current treatment regimen. Has also added lemon seed oil rubs and has helped [place] on CPAP 07/01/2013 Overview (09/01/2016): Sleep apnea Assessment & Plan (06/30/2024 1:50 PM STAGE PRODUCER): Patient continues to receive benefit from CPAP Follow-up with Sleep Medicine Assessment & Plan (10/18/2020 8:08 AM CDT): Managed by sleep medicine. Continue CPAP Assessment & Plan (04/15/2020 10:37 AM STAGE PRODUCER): Managed by sleep medicine. Continue CPAP Assessment & Plan (10/14/2019 1:55 PM CDT): Managed by sleep medicine. Continue CPAP Assessment & Plan (2019 4:48 PM CDT): Continue follow up with Dr. Gamino for management of his sleep apnea and restless leg syndrome Assessment & Plan (09/03/2018 4:17 PM CDT): noted increase in extremity movements when under anesthesia for colonoscopy. Recommended referral to Dr. Gamino for further evaluation of sleep disorder. Has not had a sleep study for many years. Assessment & Plan (04/12/2017 10:13 AM STAGE PRODUCER): Sleeping well-compliant with machine. Resolved Problems Problem Noted Date Diagnosed Date Resolved Date Depression 04/15/2021 06/30/2024 Orthostatic hypotension 10/27/2019 05 Assessment & Plan (01/23/2020 10:35 AM CDT): Improved with increased hydration. Continue regular cardiology follow-up. CKD stage 2 due to type 2 diabetes mellitus 10/23/2019 06/27/2022 Assessment & Plan (10/18/2020 8:14 AM CDT): Continue regular nephrology follow up. Stay well hydrated 64 oz water daily. Assessment & Plan (10/23/2019 12:17 PM CDT): Repeat today. Stay well hydrated. If worsening or failing to improve recommend Nephrology consultation. Controlled type 2 diabetes fred shen, without long-term current use of insulin ([facility]) 10/16/2019 07/13/2021 Overview (10/16/2019): 10/16/2019 a1c 6.5 at diagnosis Assessment & Plan (10/18/2020 8:13 AM CDT): Diabetes is improving with lifestyle modifications. Continue current treatment regimen. Reminded to bring in blood sugar diary at next visit. Dietary recommendations for ADA diet. Regular aerobic exercise. Discussed foot care. He sees retina specialist for his macular degeneration.- records requested for last exam Recommended avoiding [place]. He has stopped drinking soda and eating cookies. Cut back on alcohol intake. Diabetes will be reassessed in 6 months. Assessment & Plan (04/15/2020 10:39 AM STAGE PRODUCER): Diabetes is improving with lifestyle modifications. Continue current treatment regimen. Reminded to bring in blood sugar diary at next visit. Dietary recommendations for ADA diet. Regular aerobic exercise. Discussed foot care. He sees retina specialist for his macular degeneration.- records requested for last exam Recommended avoiding [place]. He has stopped drinking soda and eating cookies. Diabetes will be reassessed in 6 months. Assessment & Plan (01/23/2020 10:34 AM CDT): Diabetes is improving with treatment. Continue current treatment regimen. Reminded to bring in blood sugar diary at next visit. Dietary recommendations for ADA diet. Regular aerobic exercise. Discussed foot care. Recommended diabetic eye exam. He sees eye retina specialist for his macular degeneration. Reviewed signs and symptoms of hypo and hyperglycemia. His fasting blood sugars are fairly well controlled. He had to blood sugars that were not at goal (this is related to his diet.). Recommended avoiding [place]. He has stopped drinking soda and eating cookies. Diabetes will be reassessed in 3 months. Assessment & Plan (10/23/2019 12:15 PM CDT): Diabetes is newly identified. Continue current treatment regimen. Reminded to bring in blood sugar diary at next visit. Dietary recommendations for ADA diet. Regular aerobic exercise. [employer] referral. Has burrer hand appointment in November. Will hold on medication right now as diet controlled. Discussed parameters for blood sugars Diabetes will be reassessed in 3 months. Vasovagal syncope 10/14/2019 10/14/2020 Assessment & Plan (10/23/2019 12:16 PM CDT): Recommend echo and holter monitor for further evaluation. Continue to stay well hydrated. Change positions slowly from going from sitting to standing. EKG with right bundle-branch block. No previous EKG to compare. Recommended cardiology consultation Assessment & Plan (10/14/2019 1:58 PM CDT): Orthostatic hypotension vs. Bradycardia. Recommend drinking at least 64 oz water per day. Eat balanced meals with healthy high protein snacks inbetween meals. Recommended changing positions slowly, pump legs prior to standing. Continue to monitor blood pressure and heart rate. Cardiology referral placed today for further evaluation. Labs as ordered. Discussed when to seek emergency care including worsening syncope episodes and loss of consciousness. Prediabetes 09/09/2018 10/23/2019 Overview (09/20/2018): 09/09/2018 return for a1c 09/20/2018 a1c 6.1 recommended diet and lifestyle repeat in 6 months. Assessment & Plan (10/14/2019 1:56 PM CDT): -Repeat A1C today. I recommend 30 minutes of exercise and healthy well-balanced diet with watching portion control. Recommended increasing protein snacks throughout the day to minimize any fluctuation in glucose. Assessment & Plan (2019 4:49 PM CDT): -A1c was in pre diabetes range at 6.1. I recommend 30 minutes of exercise and healthy well-balanced diet with watching portion control. I would like to repeat A1c in 6 months. If worsening or failing to improve would recommend medication at that time. Screening for AAA (abdominal aortic aneurysm) 09/05/19 19 10/18/2020 Overview (09/20/2018): 09/20/2018 negative Cerebrovascular accident (CVA) 03/12/2018 10/14/2020 Overview (03/12/2018): 2009 Assessment & Plan (09/04/2018 4:54 PM CDT): LDL goal is less than 70, continue aspirin 325 mg daily Anxiety 04/12/2017 06/30/2024 Assessment & Plan (10/18/2020 8:09 AM CDT): Well controlled with citalopram 40 mg daily and BuSpar 10 mg b.i.d. Assessment & Plan (10/14/2019 1:53 PM CDT): Well controlled with citalopram 40 mg daily and BuSpar 10 mg b.i.d. Assessment & Plan (2019 4:47 PM CDT): Well controlled with citalopram 40 mg daily and BuSpar 10 mg b.i.d. Patient is not interested in titrating off his medication at this time. Discussed with him it would be reasonable to decrease the Buspar after he has weaned off the ropinirole. We will discuss this at his next follow up and would need to slowly titrate down on Buspar decreasing by 5 mg every 1-2 weeks. Assessment & Plan (09/04/2018 4:54 PM CDT): Well controlled with citalopram 40 mg daily and BuSpar 10 mg b.i.d. Assessment & Plan (11/15/2017 8:04 AM CDT): Good with medication. Assessment & Plan (07/15/2017 1:10 PM STAGE PRODUCER): Continues with the Citalopram. Has on occasion increased the buspar to TID. But feeling well. 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 Walking daily. Screening for prostate cancer 10/30/2016 12/19/2023 Hypertension associated with diabetes 10/11/2013 07/13/2021 Overview (08/31/2016): HYPERTENSION NOS Assessment & Plan (10/18/2020 8:08 AM CDT): Hypertension is Stable. Continue current treatment regimen. Dietary sodium restriction. Weight loss. Regular aerobic exercise. Blood pressure will be reassessed at the next regular appointment. Assessment & Plan (10/23/2019 12:17 PM CDT): Hypertension is Stable. Continue current treatment regimen. Dietary sodium restriction. Weight loss. Regular aerobic exercise. Not currently on antihypertensive therapy. He follows a strict low sodium diet. In light of recent hypotension and syncope episode ok to use salt. He is monitoring BP. Blood pressure will be reassessed at the next regular appointment. Assessment & Plan (10/14/2019 1:54 PM CDT): Hypertension is Stable. Continue current treatment regimen. Dietary sodium restriction. Weight loss. Regular aerobic exercise. Not currently on antihypertensive therapy. He follows a strict low sodium diet. In light of recent hypotension and syncope episode ok to use salt. He is monitoring BP. Blood pressure will be reassessed at the next regular appointment. Assessment & Plan (2019 4:44 PM CDT): Hypertension is Stable. Continue current treatment regimen. Dietary sodium restriction. Weight loss. Regular aerobic exercise. Continue current medications. Blood pressure will be reassessed at the next regular appointment. Assessment & Plan (09/04/2018 4:53 PM CDT): Hypertension is Stable. Continue current treatment regimen. Dietary sodium restriction. Weight loss. Regular aerobic exercise. Continue current medications. Blood pressure will be reassessed at the next regular appointment. Assessment & Plan (11/15/2017 8:04 AM CDT): Hypertension is stable. . Continue current treatment regimen. Weight loss. Regular aerobic exercise. Blood pressure will be reassessed at the next regular appointment. Assessment & Plan (07/15/2017 1:08 PM STAGE PRODUCER): Hypertension is well controlled. . Continue current treatment regimen. Regular aerobic exercise. Blood pressure will be reassessed in 3 months. Assessment & Plan (04/12/2017 9:27 AM STAGE PRODUCER): Hypertension is well controlled. . Continue current treatment regimen. Weight loss. Regular aerobic exercise. Blood pressure will be reassessed in 3 months. Assessment & Plan (10/30/2016 2:58 PM CDT): Hypertension is Well controlled. . Continue current treatment regimen. Blood pressure will be reassessed in 3 months. Encounters Date Type Department Care Team Description 08/19/2024 8:31 AM CDT Anesthesia Event [facility] [address] [place] [id number] Krystian Jiménez Jr., MD Lafikes, Stephanie M., CRNA 08/19/2024 8:30 AM CDT - 08/19/2024 9:00 AM CDT Surgery [facility] [address] [place] [id number] Matthew Hernandez MD COLON TUMOR ABLATION WITH DILATION 08/19/2024 7:16 AM CDT - 08/19/2024 10:28 AM CDT Hospital Encounter [facility] [address] [place] [id number] Matthew Hernandez MD History of colon polyps Discharge Disposition: Discharge to home or self care 08/19/2024 Telephone [facility] at [address] [place] [address] Matthew Hernandez MD 08/11/2024 7:20 AM CDT Lab [address] Mixed hyperlipidemia; Benign prostatic hyperplasia without lower urinary tract symptoms 08/11/2024 7:05 AM CDT Lab [address] 06/30/2024 1:30 PM STAGE PRODUCER Office Visit Family Care at [address] [phone] Davian Rios MD Encounter for Medicare annual wellness exam (Primary Dx); Benign hypertensive kidney disease with chronic kidney disease stage I through stage IV, or unspecified(403.10 ); Stage 3a chronic kidney disease (HCC); Mixed hyperlipidemia; Borderline diabetes mellitus; ISRRAEL on CPAP; BELLA (generalized anxiety disorder); Migraine without aura and without status migrainosus, not intractable; Legally blind; Restless legs syndrome; Simple chronic bronchitis (HCC); H/O: CVA (cerebrovascular accident); Atrial flutter, unspecified type (HCC); Implantable loop recorder present; Bradycardia; RBBB; PFO (patent foramen ovale); Macular degeneration of both eyes, unspecified type; Benign prostatic hyperplasia without lower urinary tract symptoms from Last 3 Months Immunizations Immunization Administration Dates Next Due Influenza, Quad, Adjuvantate d, Intramuscular 03/16/2023,02/28/2021 Influenza, Quadrivalent, Hig h Dose, Preservative Free, Intrr 03/16/2023,03/13/2022,02/17/2020 Influenza, Quadrivalent, Spl it, Preservative Free, Intramuscular 02/04/2019,03/12/2018,04/12/2017 Influenza, Split 03/04/2012,02/15/2011, 0 Influenza, Trivalent, High D ose, Split, Preservative Free, Intramuscular 01/25/2024,03/14/2016,03/29/2015,05/14 Influenza, Trivalent, IM (MDV) 03/26/2013 Influenza, Unspecified 02/28/2021 Moderna SARS-CoV-2 Monovalen t Vaccination (12+ YRS) 03/18/2021,08/03/2020,07/06/2020 Moderna Sars-cov-2 Bivalent Vaccine 50 Mcg/0.5 mL (12+ YRS)-Blue/Cotter 03/13/2022 Pneumococcal Conjugate PCV 13 03/29/2015 Pneumococcal Polysaccharide PPV23 03/14/2016 Sars-cov-2 Covid-19 Mrna, Honorio jaynaashley, Original/omicron Ba.1 01/25/2024 Tdap 12/07/2023 ZOSTER Recombinant 12/19/2022,07/20/2022 Surgical History Surgery Date Site/Laterality Comments CARPAL TUNNEL RELEASE 05/28/2005 - 05/27/2006 Bilateral COLONOSCOPY 08/19/20242011 last screening & 2019 CATARACT EXTRACTION 05/28/2016 - 05/27/2017 LOOP ELECTROSURGICAL EXCISIO N PROCEDURE 02/23/[address] Alejandra GONZALEZ SURGERY 05/28/2021 - 06/27/2021 squamous cell carcinoma Medical History Medical History Date Comments Acute poliomyelitis 1955 Rheumatic fever 1964 Hypertension Cerebrovascular accident (CV A) (HCC) ISRRAEL (obstructive sleep apnea) Cp ap at night Restless leg syndrome Hyperlipidemia Macular degeneration left eye Controlled type 2 diabetes mellitus, without long-term current use of insulin (HCC) 10/16/2019 10/16/2019 a1c 6.5 at diagnosis Anxiety 2006 Cataract 2017 surgery PFO (patent foramen ovale) 2019 History of loop recorder 09/21/2020 biotron ick MRI safe ILR BioMonitor III Rbbb 09/21/2020 Atrial flutter (HCC) 09/21/2020 Hypertension associated with diabetes (HCC) 10/11/2013 HYPERTENSION NOS Chronic kidney disease 2019 Cancer (HCC) 2020 squamous cell s kin cancer removal Blindness 2015 macular degeneration Chronic bronchitis (HCC) 2022 COPD Migraines 2022 Depression 04/15/2021 Colon polyp 4 polyps in 2019 Family History Medical History Relation Name Comments Diabetes Brother 1 serenity Diabetes type II Brother 1 serenity Drug abuse Brother 1 serenity COPD Brother 2 Tyrone COPD Brother 3 Christian COPD Brother 4 dennis Drug abuse Brother 4 dennis Alcohol abuse Father rome Arthritis Father rome COPD Father rome Hypertension Father rome Other Father rome ?; Cause of Arely th: ? Restless legs syndrome Father rome Alzheimer's disease Mother chandni Depression Mother chandni Hypertension Mother chandni Memory loss Mother chandni Mental illness Mother chandni Other Mother chandni Alive and well; Stroke Mother chandni Other Other 1 Family history of Rheumatic fever; Asthma Other 2 Family history of Asthma; Diabetes Paternal Grandmother grandma diveley COPD Sister 2 Zulema Diabetes Sister 2 Zulema COPD Sister 4 jean Colon cancer Neg Hx Prostate cancer Neg Hx Relation Name Status Comments Brother 1 serenity Brother 2 Tyrone Alive Brother 3 Christian Alive Brother 4 dennis Father rome (Age 76) Mother chandni Other 1 Other 2 Paternal Grandmother grandma diveley Sister 1 Sister 2 Zulema Alive Sister 3 Alive Sister 4 jean Social History Tobacco Use Types Packs/Day Years Used Date Smoking Tobacco: Former Cigarettes 2 40 0 05/28/1969 - 05/28/2009 Smokeless Tobacco: Never Tobacco Cessation:Counseling Given: Not Answered Comments:Smoking History Packs/day: 40 Packs Alcohol Use Standard Drinks/Week Comments Yes 6 (1 standard drink = 0.6 oz pur e alcohol) rarely AUDIT-C Answer Date Recorded Q1: How often do you have a drink containing alcohol? 4 or more times a week 08/19/2024 Q2: How many drinks containi ng alcohol do you have on a typical day when you are drinking? 3 or 4 Frequency of Binge Drinking Not on file 07/27 PHQ-2 Answer Date Recorded PHQ-2 Total Score (If total score is 3 or more points, staff should administer the PHQ-9) 0 06/26/2024 Personal Safety Answer Date Recorded Have you ever been in or are you currently in a harmful physical or emotional relationship or is someone making you feel afraid or unsafe? Denies 08/19/2024 Sex and Gender Information Value Date Recorded Sex Assigned at Not on file Legal Sex Male 9:53 AM STAGE PRODUCER Gender Identity Male 10/24/2019 10:41 AM CDT Sexual Orientation Straight 10/24/2019 10 :41 AM CDT Obstetrics History Last Filed Vital Signs Vital Sign Reading Time Taken Comments Blood Pressure 121/92 08/19/2024 10:00 AM CDT Pulse 64 08/19/2024 10:00 AM CDT Temperature 36.7 C (98.1 F) 12/07/2023 10:13 AM CDT Respiratory Rate 16 08/19/2024 10:00 AM CDT Oxygen Saturation 98% 08/19/2024 10:00 AM CDT Inhaled Oxygen Concentration - - Weight 106.6 kg (235 lb) 08/19/2024 7:44 AM CDT Height 180.3 cm (5' 11 ) 08/19/2024 7:44 AM CDT Body Mass Index 32.78 08/19/2024 7:44 AM CDT Plan of Treatment Upcoming Encounters Date Type Department Care Team (Late st Contact Info) Description 02/17/2025 8:30 AM CDT Hospital Encounter [facility] [address] [place] [address] [place] [id number] [address] 02/17/2025 8:30 AM CDT - 02/17/2025 9:00 AM CDT Surgery [facility] [address] [place] [address] [place] [address] [address] COLONOSCOPY Scheduled Procedures Name Priority Associated Diagnoses Date/Ti me COLONOSCOPY Personal history of colon polyps, unspecified 02/17/2025 8:30 AM CDT Health Maintenance Due Date Last Done Comments Covid-19 Vaccine (2023-2 5 season) 2024 01/25/2024, 01/25/2024, 12/19/2022, Additional history exists Lung Cancer Screening 03/11/2025 03/10/2024 , 03/01/2023, 03/26/2020, Additional history exists Depression Screening 06/30/2025 06/30/2024, 12/18/2023, 06/14/2023, Additional history exists Well Visit 65+ 06/30/2025 06/30/2024, 05/28, 06/27/2022, Additional history exists Fall Risk Assessment 08/19/2025 08/19/2024, 06/30/2024, 12/18/2023, Additional history exists Colon Cancer Screening-Colonoscopy 08/19/2029 08/19/2024, 06/28/2018, 01/26/2012 DTaP/Tdap/Td Vaccine (2 - Td or Tdap) 12/06/2033 12/07/2023 Pneumococcal vaccine 65+ Completed 03/14/2016, 06/2014 Hepatitis C Screening Completed 03/12/2018 Abdominal Aortic Aneurysm (A AA) Screen Completed 09/18/2018 Zoster Vaccine Completed 12/19/2022, 07/20/2022 Influenza Vaccine Completed 01/25/2024, , 03/16/2023, Additional history exists Hepatitis B Screening Completed 02/18/2024 Prostate Cancer Screening-PSA Discontinued , 07/09/2023, 03/01/2023, Additional history exists Colon Cancer Screening-CT Colonography Discontinued 08/19/2024, 06/28/2018, 01/26/2012 Colon Cancer Screening-DNA Stool Discontinued 08/19/2024, 06/28/2018, 01/26/2012 Colon Cancer Screening-FIT Discontinued 08/19, 06/28/2018, 01/26/2012 Colon Cancer Screening-Sigmoidoscopy Discontinued 08/19/2024, 06/28/2018, 01/26/2012 Procedures Procedure Name Priority Date/Time Associated Diagnosis Comments SURGICAL PATHOLOGY Routine 08/19/2024 12:26 PM CDT History of colon polyps ENDO ADD ON COLON REMOVAL SNARE 08/19/2024 8:30 AM CDT History of colon polyps ENDO ADD ON COLON INJECTION SUBMUCOSAL 08/19/2024 8:30 AM CDT History of colon polyps ENDO ADD ON COLON BIOPSY 08/19/2024 8:30 AM CDT History of colon polyps COLON TUMOR ABLATION WITH DILATION 08/19/2024 8:30 AM CDT History of colon polyps COLONOSCOPY 08/19/2024 8:10 AM CDT POCT GLUCOSE DEVICE Routine 08/19/2024 7 :55 AM CDT EGFR Routine 08/11/2024 7:12 AM CDT DIFFERENTIAL AUTO Routine 08/11/2024 7:1 2 AM CDT ERYTHROCYTE SEDIMENTATION RATE Routine 08/11/2024 7:12 AM CDT CBC WITH AUTO DIFFERENTIAL Routine 08/11/2024 7:12 AM CDT ALBUMIN CREATININE RATIO, URINE Routine 08/11/2024 7:12 AM CDT VITAMIN D 25 HYDROXY Routine 08/11/2024 7:12 AM CDT PTH Routine 08/11/2024 7:12 AM CDT TSH Routine 08/11/2024 7:12 AM CDT HEMOGLOBIN A1C Routine 08/11/2024 7:12 AM CDT URIC ACID Routine 08/11/2024 7:12 AM CDT COMPREHENSIVE METABOLIC PANEL Routine 08/11/2024 7:12 AM CDT PSA DIAGNOSTIC Routine 08/11/2024 7:12 AM CDT Benign prostatic hyperplasia without lower urinary tract symptoms LIPID PANEL Routine 08/11/2024 7:12 AM CDT Mixed hyperlipidemia URINALYSIS AND REFLEX TO MICROSCOPIC AND CULTURE Routine 08/11/2024 7:[address] LUNG CANCER SCREENING Schedule Routine, Read Routine (OP Routine) 03/10/2024 8:46 AM CDT Personal history of nicotine dependence US ABDOMINAL AORTIC ANEURYSM SCREENING Schedule Routine, Read Routine (OP Routine) 09/18/2018 9:16 AM CDT Encounter for screening for cardiovascular disorders HEPATITIS C ANTIBODY Routine 03/12/2018 11:35 AM CDT Encounter for hepatitis C screening test for low risk patient from Last 3 Months or Most Recently Relevant to Health Maintenance Results * Surgical pathology (08/19/2024 12:26 PM CDT) Tissue specimen (specimen) (Polyp(s), colon/colorectal, esophageal, gastric) 08/19/2024 8:44 AM CDT Tissue specimen (specimen) (Polyp(s), colon/colorectal, esophageal, gastric) 08/19/2024 9:00 AM CDT Tissue specimen (specimen) (Polyp(s), colon/colorectal, esophageal, gastric) 08/19/2024 9:05 AM CDT Tissue specimen (specimen) (Polyp(s), colon/colorectal, esophageal, gastric) 08/19/2024 9:15 AM CDT Narrative PATHOLOGY - 08/20/2024 12:29 PM CDT EPIC results best viewed via link to PDF [facility] Department of Pathology [address] [place] [id number] Note to Patients: This report may contain a detailed description of human tissue sent by a health care provider to the laboratory for pathologic evaluation. The content of this report is essential for diagnosis and may provide important critical findings. This information may be unfamiliar to patients to review without a medical professional present. It is advised that the patient review this report in the presence of a health care provider who can answer questions and explain the details. Final Report Patient Name: JOSSELYN CONRAD Address: [address] [place] [address]- Gender: M : 1950 (Age: 74) Service: Gastro Location: GI Lab Hospital #: [id number] Patient Type: [facility] Taken: 08/19/2024 Received: 08/19/2024 Accessioned: 08/19/2024 Reported: 08/20/2024 Physician(s):MD Dr. Davian Franco M.D. Diagnosis: A. Transverse colon polyps x7, endoscopic biopsies- Fragments of tubular adenomas B. Ascending colon polyp/polypectomy site, endoscopic biopsies- Fragments of benign colonic mucosa with mixed inflammation and regenerative features Negative for dysplasia and carcinoma C. Ascending colon polyp, endoscopic biopsy- Sessile serrated adenoma, consistent with D. Hepatic flexure polyp, endoscopic biopsy/polypectomy- Tubular adenoma Yohana Parks M.D. Report Electronically Reviewed and Signed Out By Yohana Parks M.D. 08/20/2024 12:29:51 Specimen(s) Received: A: Transverse colon polyp x7 B: Ascending colon polyp - ? prior polypectomy site C: Ascending colon polyp D: Hepatic flexure polyp Microscopic Description: Microscopic examination corroborates the diagnosis. There is no evidence of high-grade dysplasia or malignancy in material examined. Clinical History: History of colon polyps Gross Description: The specimen is submitted in four containers labeled JOSSELYN CONRAD . A. The first container is labeled transverse polyp x7 . It is 7 fragments of faulkner tissue measuring 2 mm. All in A. B. The second container is labeled ascending colon polyp? Prior polypectomy site . It is 5 fragments of faulkner tissue between 1 and 3 mm. All in B. C. The third container is labeled ascending colon polyp . It is 1 fragment of faulkner tissue measuring 4 mm. All in C. D. The fourth container is labeled hepatic flexure polyp . It is 1 faulkner polypoid tissue fragment measuring 7 mm. Inked and bisected. All in D. T.A. Jovany Sarmiento, P.Yaquelin./Donny Jain M.D. REPORT IMAGES AND SCANNED DOCUMENTS, IF INCLUDED, ONLY VIEWABLE IN PDF VERSION OF REPORT The performance characteristics of some immunohistochemical stains, fluorescence in-situ hybridization tests and immunophenotyping by flow cytometry cited in this report (if any) were determined by the Surgical Pathology Department at [facility] as part of an ongoing quality control engineer program and in compliance with federally mandated regulations drawn from the Clinical Laboratory Improvement Act of 1988 (CLIA '88). Some of these tests rely on the use of analyte specific reagents and are subject to specific labeling requirements by the US Food and Drug Administration. Such diagnostic tests may only be performed in a facility that is certified by the Department of Health and Human Services as a high complexity laboratory under CLIA '88. The FDA has determined that such clearance or approval is not necessary. This test is used for clinical purposes. It should not be regarded as investigational or for research. Nevertheless, federal rules concerning the medical use of analyte specific reagents require that the following disclaimer be attached to the report: This test was developed and its performance characteristics determined by the Surgical Pathology Department [facility]. It has not been cleared or approved by the U. S. Food and Drug Administration. Note for decalcified specimens: This assay has not been validated on decalcified tissues. Results should be interpreted with caution given the possibility of false negativity on decalcified specimens Matthew Hernandez MD LAB PATHOLOGY ORDERABLES Final Result PATHOLOGY [address] [place] [address] * Colonoscopy (08/19/2024 8:10 AM CDT) Anatomical Region Laterality Modality Other Narrative Procedure Note Matthew Hernandez MD - 08/19/2024 8:10 AM CDT [facility] Patient Name: Josselyn Conrad Procedure Date: 08/19/2024 8:10 AM Date of : 1950 Admit Type: Outpatient Age: 74 Gender: Male Note Status: Finalized Attending MD: Matthew Hernandez M.D. Procedure Date: 08/19/2024 Procedure: Colonoscopy Indications: High risk colon cancer surveillance: Personalhistory of colonic polyps Providers: Matthew Hernandez M.D., Sobeida Segura, GUSTAVO (Anesthesia Staff), Micki Ram RN, Santana, Provider Relations Consultant Referring MD: Davian Rios M.D. Medicines: Monitored Anesthesia Care Complications: No immediate complications. Estimated blood loss: Minimal. Estimated Blood Loss: Estimated blood loss was minimal. Procedure: Pre-Anesthesia Assessment: - Prior to the procedure, a History and Physicalwas performed, and patient medications and allergieswere reviewed. The patient's tolerance of previous anesthesia was also reviewed. The risks andbenefits of the procedure and the sedation options and risks were discussed with the patient. All questions were answered, and informed consent was obtained. Prior Anticoagulants: The patient has taken Xarelto (rivaroxaban), last dose was 4 days prior to procedure. ASA Grade Assessment: III - A patientwith severe systemic disease. After reviewing the risksand benefits, the patient was deemed in satisfactory condition to undergo the procedure. - The risks and benefits of the procedure and the sedation options and risks were discussed with the patient. All questions were answered and informed consent was obtained. After I obtained informed consent, the scope was passed under direct vision. Throughout theprocedure, the patient's blood pressure, pulse, and oxygen saturations were monitored continuously. The scopewas passed under direct vision. The Colonoscope was introduced through the anus and advanced to the the cecum, identified by appendiceal orifice andileocecal valve. The colonoscopy was performed without difficulty. The patient tolerated the procedurewell. The quality of the bowel preparation was good. The ileocecal valve, appendiceal orifice, and rectumwere photographed. The bowel preparation used wasGoLYTELY. Findings: The perianal and digital rectal examinations were normal. Four sessile polyps were found in the transverse colon. The polypswere 1 to 3 mm in size. These polyps were removed with a jumbo coldforceps. Resection and retrieval were complete. Three sessile polyps were found in the transverse colon. The polypswere 4 to 10 mm in size. These polyps were removed with a cold snare. Resection and retrieval were complete. A 12 mm polypoid lesion was found in the ascending colon. The lesionwas flat and appears to be scarred down tissue possibly from prior polypectomy site during last colonoscopy vs. other. No bleeding was present. We attempted to perform EMR, but the area was unsuccessfully lifted after injection with 5 mL of solution with 1:60,000 epinephrine/Eleview. The polyp was removed in piecemeal fashion witha jumbo cold forceps. Resection and retrieval were complete.Coagulation for tissue destruction using APC (ERBE right colon setting) around polypectomy edges and central area. To prevent bleeding after the polypectomy, two hemostatic clips were successfully placed (MR conditional). There was no bleeding during, or at the end, of the procedure. No visible polypoid tissue remained at the end of the resection. A 3 mm polyp was found in the ascending colon. The polyp was sessile. The polyp was removed with a jumbo cold forceps. Resection andretrieval were complete. A 10 mm polyp was found in the hepatic flexure. The polyp wassessile. The polyp was removed with a cold snare. Resection and retrieval were complete. Multiple small and large-mouthed diverticula were found in the entire colon. External hemorrhoids were found during retroflexion. Impression: 1) Four 1 to 3 mm polyps in the transverse colon, removed with a jumbo cold forceps. Resected and retrieved. 2) Three 4 to 10 mm polyps in the transverse colon, removed with a cold snare. Resected andretrieved. 3) 12 mm polypoid lesion in the ascending colonthat appears to be scarred down tissue possibly fromprior polypectomy site during last colonoscopy vs. other with residual polyp tissue. Complete removal was accomplished via lift and piecemeal resection. To reduce risk of residual polyp tissue, the centralarea and borders were treated with argon plasmacoagulation (APC). Two clips (MR conditional) were placed to reduce risk of bleeding. 3) One 3 mm polyp in the ascending colon, removedwith a jumbo cold forceps. Resected and retrieved. 4) One 10 mm polyp at the hepatic flexure, removed with a cold snare. Resected and retrieved. 5) Diverticulosis in the entire examined colon. 6) External hemorrhoids. Recommendation: - Discharge patient to home (ambulatory). - No aspirin, ibuprofen, naproxen, or other non-steroidal anti-inflammatory drugs or blood thinners for 10 days after polyp removal. - Repeat colonoscopy in 3-6 months for surveillance after piecemeal polypectomy. Procedure Code(s): --- Professional --- 83782, Colonoscopy, flexible; with ablation of tumor(s), polyp(s), or other lesion(s) (includespre- and post-dilation and guide wire passage, when performed) 69006, 59, Colonoscopy, flexible; with removal of tumor(s), polyp(s), or other lesion(s) by snare technique 10009, 59, Colonoscopy, flexible; with biopsy,single or multiple 42228, Colonoscopy, flexible; with directedsubmucosal injection(s), any substance Diagnosis Code(s): --- Professional --- Z86.010, Personal history of colonic polyps D12.3, Benign neoplasm of transverse colon (hepatic flexure or splenic flexure) D49.0, Neoplasm of unspecified behavior ofdigestive system D12.2, Benign neoplasm of ascending colon K64.4, Residual hemorrhoidal skin tags K57.30, Diverticulosis of large intestine without perforation or abscess without bleeding CPT copyright 2020 [employer]. All rights reserved. The codes documented in this report are preliminary and upon home restoration service cleaner reviewmay be revised to meet current compliance requirements. Matthew Hernandez M.D. 08/19/2024 9:44:54 AM Number of Addenda: 0 Note Initiated On: 08/19/2024 8:10 AM Matthew Hernandez MD ENDOSCOPY PROCEDURES Edit ed Result - Final * POCT glucose (08/19/2024 7:55 AM CDT) [facility] Glucose, POC 127 70 - 199 mg/dL POC Performer [id number] [facility] Blood 08/19/2024 7:55 AM CDT 08/19/2024 7:55 AM CDT Matthew Hernandez MD LAB POCT ORDERABLES - DEV ICE Final Result [facility] [place] [address] [address] Department [place] [address] * (ABNORMAL) eGFR (08/11/2024 7:12 AM CDT) [facility] eGFR 59(L) >=60 mL/min/1. 73 m2 Comment: Interpretive Data Reference Interval Normal >/= 90 mL/min/1.73m2 Mildly decreased* 60 - 89 mL/min/1.73m2 Mildly to moderately decreased 45 - 59 mL/min/1.73m2 Moderately to severely decreased 30 - 44 mL/min/1.73m2 Severely decreased 15 - 29 mL/min/1.73m2 Kidney Failure < 15 mL/min/1.73m2 *Relative to young adult level Estimated glomerular filtration rate is determined by the 2020 CKD-EPI equation recommended by the National Kidney Foundation (A Unifying Approach to GFR Estimation: Recommendations of the NKF-ASK Task Force on Reassessing the Inclusion of Race in Diagnosing Kidney Disease, JASN 2020). The CKD-EPI equation should not be used for patients with unstable renal function and has not been validated in children and those over 70. Current interpretive data was last reviewed 2021. Blood 08/11/2024 7:12 AM CDT 08/11/2024 10:59 AM CDT us Satya Porter MD LAB BLOOD ORDERABLES Final Res ult [facility] ([place] 1 [facility] [place] [address] * Differential, auto (08/11/2024 7:12 AM CDT) Neutrophil abs 4.0 1.5 - 6.5 K/cumm Imm gran abs 0.0 0.0 - 0.1 K/cumm [facility] ([place]) Lymphocyte abs 3.1 0.8 - 3.3 K/cumm [facility] ([place]) Monocyte abs 0.8 0.2 - 0.8 K/cumm [facility] ([place]) Eosinophil abs 0.2 0.0 - 0.5 K/cumm [facility] ([place]) Basophil abs 0.1 0.0 - 0.1 K/cumm [facility] ([place]) Neutrophil pct 49.4 % [facility] ([place]) Comment: Interpretive Data Percent cell count reference ranges are not reported, since discordance with absolute values may lead to misinterpretation of CBC data. Current Interpretive Data was last revised on 2017. Imm gran pct 0.2 % [facility] ([place]) Comment: Interpretive Data Percent cell count reference ranges are not reported, since discordance with absolute values may lead to misinterpretation of CBC data. Current Interpretive Data was last revised on 2017. Lymphocyte pct 37.5 % [facility] ([place]) Comment: Interpretive Data Percent cell count reference ranges are not reported, since discordance with absolute values may lead to misinterpretation of CBC data. Current Interpretive Data was last revised on 2017. Monocyte pct 9.9 % [facility] ([place]) Comment: Interpretive Data Percent cell count reference ranges are not reported, since discordance with absolute values may lead to misinterpretation of CBC data. Current Interpretive Data was last revised on 2017. Eosinophil pct 2.3 % [facility] ([place]) Comment: Interpretive Data Percent cell count reference ranges are not reported, since discordance with absolute values may lead to misinterpretation of CBC data. Current Interpretive Data was last revised on 2017. Basophil pct 0.7 % [facility] ([place]) Comment: Interpretive Data Percent cell count reference ranges are not reported, since discordance with absolute values may lead to misinterpretation of CBC data. Current Interpretive Data was last revised on 2017. Blood 08/11/2024 7:12 AM CDT 08/11/2024 10:59 AM CDT us Satya Porter MD LAB BLOOD ORDERABLES Final Res ult [facility] ([place]) 1 [facility] Department [place] [address] * (ABNORMAL) Urinalysis reflex to microscopic and culture Urine (08/11/2024 7:12 AM CDT) Color, ur Yellow Yellow Clarity, ur Clear Clear [facility] ([place]) Specific gravity, ur 1.027 1.003 - 1.030 [facility] ([place]) pH, urine 5.5 [facility] ([place]) Comment: Interpretive Data U rine pH is affected by diet, medications, systemic acid-base disturbances, and renal tubular function. pH may affect urinary stone formation. For example, urine pH below 6.0 may help reduce the tendency for calcium phosphate stones and pH greater than 6.0 may reduce the tendency for uric acid stone formation. Source: [facility] [email or web address] Current Interpretive Data was last revised on 2017 Protein, ur ql Trace Negative [facility] ([place]) Glucose, ur ql 4+(A) Negative [facility] ([place]) Ketones, ur Negative Negative [facility] ([place]) Bilirubin, ur Negative Negative [facility] ([place]) Blood, ur Negative Negative [facility] ([place]) Urobilinogen, ur <2.0 <2.0 mg/dL [facility] ([place]) Nitrite, ur Negative Negative [facility] ([place]) Leukocyte esterase, ur Negative Negative [facility] ([place]) UA reflex comment Reflex conditions for microscopic UA and culture not met. [facility] ([place]) Urine 08/11/2024 7:12 AM CDT 08/11/2024 10:59 AM CDT us Satya Porter MD LAB MICROBIOLOGY - GENERAL ORD ERABLES Final Result [facility] ([place]) 1 [facility] Department [place] [address] * CBC with auto differential (08/11/2024 7:12 AM CDT) WBC 8.2 3.8 - 9.9 K/cumm Hgb 14.1 13.0 - 17.5 g/dL [facility] ([place]) Hct 43.1 38.9 - 50.3 % [facility] ([place]) Plt 228 150 - 400 K/cumm [facility] ([place]) MPV 11.5 9.1 - 12.3 fL [facility] ([place]) RBC 4.78 4.30 - 5.80 M/cumm [facility] ([place]) MCV 90.2 81.3 - 96.4 fL [facility] ([place]) MCH 29.5 27.1 - 33.3 pg [facility] ([place]) MCHC 32.7 32.3 - 35.7 g/dL [facility] ([place]) RDW CV 14.0 11.1 - 14.9 % [facility] ([place]) RDW SD 45.6 35.7 - 48.1 fL [place] ([place]) NRBC abs 0.00 0.00 - 0.01 K/cumm [facility] ([place]) Blood 08/11/2024 7:12 AM CDT 08/11/2024 10:59 AM CDT Satya Porter MD LAB BLOOD ORDERABLES Final Res ult [facility] ([place]) [address] [place] [address] [place] [address] * (ABNORMAL) Albumin Creatinine Ratio, Urine (08/11/2024 7:12 AM CDT) Pathologist [facility] Albumin Ur 67.2 mg/L Comment: Interpretive Data No reference range established. Current interpretive data was last revised 2018. Testing performed by: [address] [address] Creatinine Ur 189.3 mg/dL [facility] ([place]) Comment: Interpretive Data No reference range established. Current interpretive data was last revised 2018. Testing performed by: [facility], [address] [place] [address]., [id number] Albumin Creatinine Ratio, Ur 35(H) 1 - 29 mg/g [facility] ([place]) Comment:Testing performed by : [facility], [address] [place] [address]., [id number] Urine 08/11/2024 7:12 AM CDT 08/11/2024 4:56 PM CDT Satya Porter MD LAB URINE ORDERABLES Final Res ult [facility] ([place]) 1 [facility] [email or web address] [address] * Vitamin D 25 hydroxy (08/11/2024 7:12 AM CDT) Vitamin D 25-OH 51 30 - 80 ng/mL Blood 08/11/2024 7:12 AM CDT 08/11/2024 10:59 AM CDT Satya Porter MD LAB BLOOD ORDERABLES Final Res ult [facility] ([place]) [address] [place] [address] [email or web address] [address] * Erythrocyte sedimentation rate (08/11/2024 7:12 AM CDT) Erythrocyte sedimentation rate 16 1 - 20 mm/hr Blood 08/11/2024 7:12 AM CDT 08/11/2024 10:59 AM CDT us Satya Porter MD LAB BLOOD ORDERABLES Final Res ult Performing Organization Address [facility] Co de Phone Number [facility] ([place]) [address] [place] [address] [email or web address] [address] * Uric acid (08/11/2024 7:12 AM CDT) Pathologist [facility] Uric acid 4.9 3.0 - 8.0 mg/dL Blood 08/11/2024 7:12 AM CDT 08/11/2024 10:59 AM CDT Satya Porter MD LAB BLOOD ORDERABLES Final Res ult Performing Organization Address City/[facility]/ZIP Co de Phone Number [facility] ([place]) 1 [facility] [email or web address] [address] * TSH (08/11/2024 7:12 AM CDT) Thyroid Stimulating Hormone 1.17 0.30 - 4.20 mcIUnit/mL Blood 08/11/2024 7:12 AM CDT 08/11/2024 10:59 AM CDT Satya Porter MD LAB BLOOD ORDERABLES Final Res ult [facility] ([place]) 1 [facility] [place] [address] * PSA diagnostic (08/11/2024 7:12 AM CDT) PSA-Total 0.56 <=6.20 ng/mL Comment: Interpretive Data AGE SEX REFERENCE INTERVAL 0 minutes-150 years Female None 0 minutes-49 years Male None 50-59 years Male 0-3.90 60-69 years Male 0-5.40 70-79 years Male 0-6.20 80-150 years Male 0-6.20 The Bonifacio PSA Total assay procedure was used. Results from different manufacturers or methods may not be comparable. Serial testing should be performed using the same method. Current interpretive data last revised 21. Blood 08/11/2024 7:12 AM CDT 08/11/2024 10:59 AM CDT us Davian Rios MD LAB BLOOD ORDERABLES Final Result Performing Organization Address City/[facility]/ZIP Co de Phone Number [facility] ([place]) 1 [facility] [place] [address] * PTH (08/11/2024 7:12 AM CDT) Pathologist [facility] PTH 61 15 - 65 pg/mL Blood 08/11/2024 7:12 AM CDT 08/11/2024 10:59 AM CDT Satya Porter MD LAB BLOOD ORDERABLES Final Res ult [facility] ([place]) 1 [facility] [email or web address] [address] * (ABNORMAL) Hemoglobin A1c (08/11/2024 7:12 AM CDT) Hgb A1C 6.7(H) 4.0 - 5.6 % Estimated Average Glucose 146 mg/dL [facility] [place]) Comment: The ADA recommends reporting an estimated Average Glucose (eAG) with all Hemoglobin A1c results using the equation derived from a study of 507 normal and diabetic adults. Minority populations were underrepresented and children were not included. (Diabetes Care 31:8687-1382, 2008). The eAG is not equivalent to a fasting glucose. Blood 08/11/2024 7:12 AM CDT 08/11/2024 10:59 AM CDT us Satya Porter MD LAB BLOOD ORDERABLES Final Res ult [facility] ([place]) 1 [facility] Department [place] [address] * (ABNORMAL) Lipid panel (08/11/2024 7:12 AM CDT) Cholesterol 173 30 - 199 mg/dL Comment: Interpretive Data Ages < or = 19 years Acceptable: <170 mg/dL Borderline high: 170-199 mg/dL High: >or= 200 mg/dL Ages > or = 20 years Desirable: <200 mg/dL Borderline high: 200-239 mg/dL High: >or= 240 mg/dL Literature References: 1. Expert Panel on Integrated Guidelines for Cardiovascular Health and Risk Reduction in Children and Adolescents. Pediatrics 2011;128:S213 2. NCEP Expert Panel. Circulation 2004;110:227 Current Interpretive Data was last revised on 2018. Triglycerides 267(H) <=149 mg/dL [facility] RAT[facility]FF) Comment: Interpretive Data Ages < or = 9 years Acceptable: <75 mg/dL Borderline high: 75-99 mg/dL High: >or= 100 mg/dL Ages 10 to 20 years Acceptable: <90 mg/dL Borderline high: 90-129 mg/dL High: >or= 130 mg/dL Ages > or = 20 years Desirable: <150 mg/dL Borderline high: 150-199 mg/dL High: 200-499 mg/dL Very high: >or= 499 mg/dL Literature References: 1. Expert Panel on Integrated Guidelines for Cardiovascular Health and Risk Reduction in Children and Adolescents. Pediatrics 2011;128:S213 2. NCEP Expert Panel. Circulation 2004;110:227 Current Interpretive Data was last revised on 2018. HDL 35(L) >=40 mg/dL [facility] ([place]) Comment: Interpretive Data Ages < or = 19 years Acceptable: >45 mg/dL Borderline low: 40-45 mg/dL Low: <40 mg/dL Ages > or = 20 years Desirable: >or= 60 mg/dL Low: <40 mg/dL Literature References: 1. Expert Panel on Integrated Guidelines for Cardiovascular Health and Risk Reduction in Children and Adolescents. Pediatrics 2011;128:S213 2. NCEP Expert Panel. Circulation 2004;110:227 Current Interpretive Data was last revised on 2018. LDL, calculated 93 <=129 mg/dL [facility] ([place]) Comment: Interpretive Data Ages < or = 19 years Acceptable: <110 mg/dL Borderline high: 110-129 mg/dL High: >or= 130 mg/dL Ages > or = 20 years Optimal: <100 mg/dL Near optimal: 100-129 mg/dL Borderline high: 130-159 mg/dL High: >160 mg/dL Calculated using the Misbah LDL-C estimating equation. This equation was implemented on 2024. Prior to this date LDL-C was estimated using the Friedewald equation. Literature References: 1. Expert Panel on Integrated Guidelines for Cardiovascular Health and Risk Reduction in Children and Adolescents. Pediatrics 2011;128:S213 2. NCEP Expert Panel. Circulation 2004;110:227 3. Misbah Grady et al. ANALILIA Cardiol. 2019September 25;5(5):540-548. doi: 10.1001/jamacardio.2020.0013 Current Interpretive Data was last revised on 2024. Non-HDL Cholesterol 138 mg/dL [facility] ([place]) Comment: Interpretive Data Ages < or = 19 years Acceptable: <120 mg/dL Borderline high: 120-144 mg/dL High: >145 mg/dL Ages > or = 20 years When triglycerides are >200 mg/dL, Non-HDL cholesterol is a secondary target of therapy with treatment goals that are 30 mg/dL greater than the LDL cholesterol target. Literature References: 1. Expert Panel on Integrated Guidelines for Cardiovascular Health and Risk Reduction in Children and Adolescents. Pediatrics 2011;128:S213 2. NCEP Expert Panel. Circulation 2004;110:227 Current Interpretive Data was last revised on 2018. Chol/HDL ratio 5 [facility] ([place]) Blood 08/11/2024 7:12 AM CDT 08/11/2024 10:59 AM CDT us Davian Rios MD LAB BLOOD ORDERABLES Final Result [facility] ([place]) 1 [facility] [place] [address] * Comprehensive metabolic panel (08/11/2024 7:12 AM CDT) Sodium 138 135 - 145 mmol/L Potassium, pl 4.5 3.3 - 4.9 mmol/L [facility] ([place]) Chloride 102 97 - 110 mmol/L [facility] ([place]) CO2 23 22 - 32 mmol/L [facility] ([place]) Anion gap 13 2 - 15 mmol/L [facility] ([place]) BUN 17 6 - 25 mg/dL [facility] ([place]) Creatinine 1.28 0.80 - 1.30 mg/dL [facility] ([place]) Glucose 119 70 - 199 mg/dL [facility] ([place]) Comment: Interpretive Data Fasting glucose >/= 126 mg/dl is diagnostic for diabetes. Fasting is defined as no caloric intake for at least 8 hours. Fasting glucose between 100 mg/dl to 125 mg/dl is diagnostic of prediabetes. In a patient with classic symptoms of hyperglycemia or hyperglycemic crisis, a random glucose >/= 200 mg/dl is diagnostic for diabetes. In the absence of unequivocal hyperglycemia, results should be confirmed by repeat testing. The classification and Diagnosis of Diabetes Diabetes Care 202; 46: S19-S40. Current interpretive data was last revised 2022. Calcium 9.1 8.5 - 10.3 mg/dL [facility] ([place]) Bilirubin, total 0.4 0.1 - 1.2 mg/dL [facility] ([place]) Protein, pl 7.3 6.5 - 8.5 g/dL [facility] ([place]) Albumin 4.1 3.5 - 5.0 g/dL [facility] ([place]) Alk phos 71 40 - 130 Units/L [facility] ([place]) ALT 34 7 - 55 Units/L [facility] ([place]) AST 37 10 - 50 Units/L [facility] ([place]) Comment:Slightly Hemolyzed S pecimen Blood 08/11/2024 7:12 AM CDT 08/11/2024 10:59 AM CDT us Satya Porter MD LAB BLOOD ORDERABLES Final Res ult [facility] ([place]) 1 [facility] [place] [address] * CT Lung Cancer Screening (03/10/2024 8:46 AM CDT) Anatomical Region Laterality Modality Chest N/A Computed Tomogra phy 03/10/2024 9:12 AM CDT Impressions 03/10/2024 9:12 AM CDT 1. LungRADS Category 1 (negative) . Recommend Low dose Screening CT of chest in 12 months. 2. Mild centrilobular emphysematous changes. LungRADS Categories: 1 - Negative (no nodules, or only benign calcified or fat-containing nodules) 2 - Benign Appearance or Behavior (nodules with very low likelihood of becoming a clinically active cancer due to size or lack of growth) 3 - Probably Benign (probably benign findings-short term follow up suggested; includes nodules with a low likelihood of becoming a clinically active cancer) 4A,4B,4X - Suspicious (category 3 or 4 nodules with findings for which additional diagnostic testing and/or tissue sampling is recommended) S - Other (clinically significant or potentially clinically significant findings (non-lung cancer) C - Prior Lung Cancer (modifier for patients with a prior diagnosis of lung cancer who return to screening) Electronically signed by: Jacinto Alcantar II, D.O. Narrative 03/10/2024 9:12 AM CDT EXAMINATION: Lung cancer screening CT of the Chest without intravenous contrast HISTORY: Lung Cancer Screening TECHNIQUE: Low radiation dose chest protocol. No intravenous contrast. Reconstructed slice width 1.[address] Dose Index 2.36 mGy. Dose-length product 79.4 mGy-cm. COMPARISON: Multiple priors most recent dated 03/01/2023. FINDINGS: Lung nodules or findings of lung cancer: None. Smoking related lung disease: emphysema Other findings: Thyroid and thoracic inlet structures are unremarkable. Atherosclerotic calcifications in the aorta and coronary arteries. No pericardial effusion. Leadless pacer device noted. Small hiatal hernia. Upper abdominal structures are unremarkable as seen. No acute osseous abnormality. No suspicious lytic or sclerotic lesions. Mild multilevel endplate changes in the visualized spine. Procedure Note Jacinto Alcantar II, DO - 03/10/2024 EXAMINATION: Lung cancer screening CT of the Chest without intravenous contrast HISTORY: Lung Cancer Screening TECHNIQUE: Low radiation dose chest protocol. No intravenous contrast. Reconstructed slice width 1.[address] Dose Index 2.36 mGy. Dose-length product 79.4 mGy-cm. COMPARISON: Multiple priors most recent dated 03/01/2023. FINDINGS: Lung nodules or findings of lung cancer: None. Smoking related lung disease: emphysema Other findings: Thyroid and thoracic inlet structures are unremarkable. Atherosclerotic calcifications in the aorta and coronary arteries. No pericardial effusion. Leadless pacer device noted. Small hiatal hernia. Upper abdominal structures are unremarkable as seen. No acute osseous abnormality. No suspicious lytic or sclerotic lesions. Mild multilevel endplate changes in the visualized spine. IMPRESSION: 1. LungRADS Category 1 (negative) . Recommend Low dose Screening CT of chest in 12 months. 2. Mild centrilobular emphysematous changes. LungRADS Categories: 1 - Negative (no nodules, or only benign calcified or fat-containing nodules) 2 - Benign Appearance or Behavior (nodules with very low likelihood of becoming a clinically active cancer due to size or lack of growth) 3 - Probably Benign (probably benign findings-short term follow up suggested; includes nodules with a low likelihood of becoming a clinically active cancer) 4A,4B,4X - Suspicious (category 3 or 4 nodules with findings for which additional diagnostic testing and/or tissue sampling is recommended) S - Other (clinically significant or potentially clinically significant findings (non-lung cancer) C - Prior Lung Cancer (modifier for patients with a prior diagnosis of lung cancer who return to screening) Electronically signed by: Jacinto Alcantar II, D.O. us Merlny Quinn MD IMG CT PROCEDURES Final Result * US Abdominal Aortic Aneurysm Screening (09/18/2018 9:16 AM CDT) Anatomical Region Laterality Modality Abdomen Ultrasound 09/18/2018 10:0 3 AM CDT Impressions 09/18/2018 10:18 AM CDT No evidence of an abdominal aortic aneurysm. Electronically signed by: Franky Tran M.D. Narrative 09/18/2018 10:18 AM CDT RESULT: EXAM: US ABDOMINAL AORTIC ANEURYSM SCREENING DATE: 09/18/2018 9:00 AM CLINICAL HISTORY: Screening for abdominal aortic aneurysm. Former smoker. COMPARISON: CT abdomen from 11/19/2011. FINDINGS: Ultrasound of the abdominal aorta was performed in longitudinal and transverse planes. The proximal abdominal aorta measures 2.4 cm. The mid abdominal aorta measures 1.7 cm. The distal abdominal aorta measures 1.5 cm. No evidence of an aneurysm. No evidence of periaortic fluid. Procedure Note Franky Tran MD - 09/18/2018 RESULT: EXAM: US ABDOMINAL AORTIC ANEURYSM SCREENING DATE: 09/18/2018 9:00 AM CLINICAL HISTORY: Screening for abdominal aortic aneurysm. Former smoker. COMPARISON: CT abdomen from 11/19/2011. FINDINGS: Ultrasound of the abdominal aorta was performed in longitudinal and transverse planes. The proximal abdominal aorta measures 2.4 cm. The mid abdominal aorta measures 1.7 cm. The distal abdominal aorta measures 1.5 cm. No evidence of an aneurysm. No evidence of periaortic fluid. IMPRESSION: No evidence of an abdominal aortic aneurysm. Electronically signed by: Franky Tran M.D. Joanne Olson NP IMG US PROCEDURES Final Resu lt * Hepatitis C antibody (03/12/2018 11:35 AM CDT) Hep C Ab Negative Negative [facility] Blood specimen (specimen) 03/12/2018 11:35 AM CDT 03/12/2018 12:14 PM CDT Narrative [facility] - 03/12/2018 1:03 PM CDT Joanne Olson NP LAB MICROBIOLOGY - GENERAL [place] [address] [address] Department [place] [address] from Last 3 Months or Most Recently Relevant to Health Maintenance Insurance MEDICARE COMMERCIAL GENERIC MEDICARE COMMERCIAL GENERIC [facility] MEDICARE [employer] [place] Care Teams Brain Wave Technician Relationship Specialty [place] [address] [address] [facility] [address] [place] [address] PCP - General Family Medicine 07/13/21 James Ram MD [address] [place] [address] Referring Physician Ophthalmology 03/12/18 Dina Gamino MD [address] [place] [address] Consulting Physician Neurology 10/24/18 Satya Porter MD [address] [place] [address] Consulting Physician Nephrology 01/23/20 Jennifer Porter MD [address] [place] [address] Consulting Physician Cardiology 02/13/20 Rey Meier MD [address] [place] [address] Consulting Physician Ophthalmology 12/22/21 Robbi Ramey Jr., MD [address] [facility] [place] [address] Dermatology 12/22/21 Darius Camp MD [address] [place] [address] Consulting Physician Orthopedic Surgery 09/10/22 [place] [address] [facility] [address] [place] [address] Consulting Physician Pulmonary Disease 01/02/24 Pete Elliott MD [address] [place] [address] Consulting Physician Ophthalmology 03/20/24
--- OUTSIDE RECORDS SUMMARY | 2024-09-09 17:53 | XMS_ITS | Referral Summary ---
Author Organization [facility] Physician Office Building [address] [place] [id number] Care Team Providers Care Embossograph Operator Name Role Phone James Ram MD Unavailable [phone] Dina Gamino MD Unavailable Satya Porter MD Unavailable [phone] Jennifer Porter MD Unavailable Davian Rios MD Primary Care Provide r Rey Meier MD Unavailable [phone] Karoline Prather MD, Robbi Arriaga Unavailable [phone] Darius Camp MD Unavailable [phone] Merlyn Quinn MD Unavailable [phone] Pete Elliott MD Unavailable Encounters Date Type Department Care Team Description 08/19/2024 Telephone [facility] Gastroenterology at [facility] [address] [facility] [address] [place] [address] Matthew Hernandez MD 08/19/2024 8:31 AM CDT Anesthesia Event [facility] [address] [place] [address] Krystian Jiménez Jr., MD Lafikes, Stephanie M., CRNA 08/19/2024 8:30 AM CDT - 08/19/2024 9:00 AM CDT Surgery [facility] [address] [place] [address] Matthew Hernandez MD COLON TUMOR ABLATION WITH DILATION 08/19/2024 7:16 AM CDT - 08/19/2024 10:28 AM CDT Hospital Encounter [facility] [address] [place] [address] Matthew Hernandez MD History of colon polyps Discharge Disposition: Discharge to home or self care 08/11/2024 7:20 AM CDT Lab [address] Mixed hyperlipidemia; Benign prostatic hyperplasia without lower urinary tract symptoms 08/11/2024 7:05 AM CDT Lab [address] 06/30/2024 1:30 PM ARCHITECTURAL DRAFTSMAN Office Visit [facility] [address] [facility] [address] [place] [phone] Davian Rios MD Encounter for Medicare annual [...] CVA (cerebrovascular accident); Atrial flutter, unspecified type ([facility]); Implantable loop recorder present; Bradycardia; RBBB; PFO (patent foramen ovale); Macular degeneration of both eyes, unspecified type; Benign prostatic hyperplasia without lower urinary tract symptoms from Last 3 Months Allergies Active Allergy Reactions Criticality Noted Date [...] 06/30/2024 Assessment & Plan (06/30/2024 1:47 PM ARCHITECTURAL DRAFTSMAN): Controlled/stable, continue current management Continue current medical therapy including Celexa and buspirone Migraine without aura and wi thout status migrainosus, not intractable 06/30/2024 Assessment & Plan (06/30/2024 1:49 PM ARCHITECTURAL DRAFTSMAN): Migraines decreasing in frequency Still treatable and responsive to Imitrex p.r.n. 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 IV, or unspecified(403.10) 06/30/2024 Assessment & Plan (06/30/2024 1:50 PM ARCHITECTURAL DRAFTSMAN): BP Readings from Last 3 Encounters: 06/30/24 134/75 05/16/24 112/63 12/18/23 119/61 Controlled/stable, continue current management Continue Jardiance Follow up with Nephrology Stage 3a chronic kidney disease 06/30/2024 Assessment & Plan (06/30/2024 1:47 PM ARCHITECTURAL DRAFTSMAN): Follow up with Nephrology COPD (chronic obstructive pulmonary disease) 11/2023 Assessment & Plan (06/30/2024 1:49 PM ARCHITECTURAL DRAFTSMAN): Controlled/stable, continue current management Follow up with Pulmonary Continue current treatment including Trelegy for daily maintenance and albuterol p.r.n. for acute symptoms BPH (benign prostatic hyperplasia) 12/19/2023 Assessment & Plan (06/30/2024 1:50 PM ARCHITECTURAL DRAFTSMAN): Stable - symptoms controlled with Flomax Monitor PSA Lab Results Component Value Date PSA 0.73 07/09/2023 PSA 0.64 03/01/2023 PSA 0.67 06/19/2022 Implantable loop recorder present 10/24/2022 Assessment & Plan (06/30/2024 1:45 PM ARCHITECTURAL DRAFTSMAN): Follow up with Cardiology Osteoarthritis of right knee 09/10/2022 Borderline diabetes mellitus 07/13/2021 Assessment & Plan (06/30/2024 1:45 PM ARCHITECTURAL DRAFTSMAN): Monitored by Nephrology with A1c every 3-6 months Stable - monitor Focus on therapeutic lifestyle changes - diet/exercise - to maintain normal sugar levels and prevent progression to diabetes Continue Jardiance Encounter for screening for cardiovascular disor ders 02/23/2020 Atrial flutter 01/26/2020 Assessment & Plan (06/30/2024 1:45 PM ARCHITECTURAL DRAFTSMAN): Controlled/stable, continue current management Follow up with [...] cardiology. Assessment & Plan (04/15/2020 10:40 AM ARCHITECTURAL DRAFTSMAN): On Xarelto for CVA prophylaxis. Rhythm is regular on exam today- bradycardic. Recommend continuing follow up with cardiology. H/O: CVA (cerebrovascular accident) 10/27/2019 Overview (10/14/2020): 2009 continue statin and Xarelto Assessment & Plan (06/30/2024 1:48 PM ARCHITECTURAL DRAFTSMAN): Continue statin therapy for secondary prevention Continue Xarelto for anticoagulation Antiplatelet therapy contraindicated due to bleeding risk with concurrent anticoagulation Follow-up with Cardiology PFO (patent foramen ovale) 10/27/2019 Assessment & Plan (06/30/2024 1:45 PM ARCHITECTURAL DRAFTSMAN): Follow up with Cardiology Assessment & Plan (10/18/2020 8:14 AM CDT): Continue regular cardiology follow up. RBBB 10/23/2019 Assessment & Plan (06/30/2024 1:45 PM ARCHITECTURAL DRAFTSMAN): Follow up with Cardiology Assessment & Plan (10/23/2019 12:17 PM CDT): Recommended cardiology consultation. Discussed warning signs of when to seek emergency care for chest pain including chest pain that does not go away, severe in nature, associated dizziness, shortness of breath or fatigue. Bradycardia 10/14/2019 Assessment & Plan (06/30/2024 1:45 PM ARCHITECTURAL DRAFTSMAN): Follow up with Cardiology Assessment & Plan (04/15/2020 10:39 AM ARCHITECTURAL DRAFTSMAN): Continue regular follow up with cardiology. Assessment [...] 09/04/2018 Assessment & Plan (06/30/2024 1:46 PM ARCHITECTURAL DRAFTSMAN): Controlled/stable, continue current management Follow-up with Ophthalmology Assessment & Plan (10/18/2020 8:12 AM CDT): Continue regular appointment with ophthalmology. Assessment & Plan (2019 4:47 PM CDT): Recommended follow-up with Ophthalmology. Assessment & Plan (09/04/2018 4:56 PM CDT): Recommended follow-up with Ophthalmology. Screen for colon cancer 05/31/2018 Overview (05/31/2018): Added automatically from request for surgery [id number] History of colon polyps 03/12/2018 Assessment & Plan (09/04/2018 4:55 PM CDT): Next colonoscopy due in 2023 Mixed hyperlipidemia 04/12/2017 Assessment & Plan (06/30/2024 1:44 PM ARCHITECTURAL DRAFTSMAN): Continue statin therapy Assessment & Plan (10/18/2020 8:09 AM CDT): Lipid abnormalities are unchanged. Nutritional counseling was provided., Pharmacotherapy as ordered. and continue Simvastatin 40 mg daily Lipids due today Lipids will be reassessed in 6 months. Assessment & Plan (04/15/2020 10:38 AM ARCHITECTURAL DRAFTSMAN): Lipid abnormalities are unchanged. Nutritional counseling was [...] months. Assessment & Plan (07/15/2017 1:08 PM ARCHITECTURAL DRAFTSMAN): Lipid abnormalities are controlled with treatment. Pharmacotherapy as ordered. Lipids will be reassessed in 3 months. Assessment & Plan (04/12/2017 9:27 AM ARCHITECTURAL DRAFTSMAN): Lipid abnormalities are well controlled with statin. [...] exercise. Assessment & Plan (04/15/2020 10:38 AM ARCHITECTURAL DRAFTSMAN): Obesity is unchanged. Discussed the patient's BMI. [...] etc). Assessment & Plan (07/15/2017 1:10 PM ARCHITECTURAL DRAFTSMAN): Obesity is improving with lifestyle modifications. Discussed the patient's BMI. The BMI is above average; BMI management plan is completed. General weight loss/lifestyle modification strategies discussed (elicit support from others; identify saboteurs; non-food rewards, etc). Assessment & Plan (04/12/2017 9:27 AM ARCHITECTURAL DRAFTSMAN): Obesity is unchanged. Discussed the patient's BMI. [...] syndrome Assessment & Plan (06/30/2024 1:48 PM ARCHITECTURAL DRAFTSMAN): Controlled/stable, continue current management Continue current medical [...] mg Assessment & Plan (07/15/2017 1:09 PM ARCHITECTURAL DRAFTSMAN): Well controlled at this time. Assessment & Plan (04/12/2017 10:12 AM ARCHITECTURAL DRAFTSMAN): Controlled with current treatment regimen. Assessment & Plan (10/30/2016 2:58 PM CDT): Continue with current treatment regimen. Has also added lemon seed oil rubs and has helped ISRRAEL on CPAP 07/01/2013 Overview (09/01/2016): Sleep apnea Assessment & Plan (06/30/2024 1:50 PM ARCHITECTURAL DRAFTSMAN): Patient continues to receive benefit from CPAP Follow-up with Sleep Medicine Assessment & Plan (10/18/2020 8:08 AM CDT): Managed by sleep medicine. Continue CPAP Assessment & Plan (04/15/2020 10:37 AM ARCHITECTURAL DRAFTSMAN): Managed by sleep medicine. Continue CPAP Assessment [...] years. Assessment & Plan (04/12/2017 10:13 AM ARCHITECTURAL DRAFTSMAN): Sleeping well-compliant with machine. Resolved Problems Problem Noted Date Diagnosed Date Resolved Date Depression 04/15/2021 06/30/2024 Orthostatic hypotension 10/27/2019 05/2 Assessment & Plan (01/23/2020 10:35 AM CDT): [...] shen, without long-term current use of insulin ([facility]) 10/16/2019 07/13/2021 Overview (10/16/2019): 10/16/2019 [...] records requested for last exam Recommended avoiding Maldivian. He has stopped drinking soda and eating cookies. Cut back on alcohol intake. Diabetes will be reassessed in 6 months. Assessment & Plan (04/15/2020 10:39 AM ARCHITECTURAL DRAFTSMAN): Diabetes is improving with lifestyle modifications. Continue current treatment regimen. Reminded to bring in blood sugar diary at next visit. Dietary recommendations for ADA diet. Regular aerobic exercise. Discussed foot care. He sees retina specialist for his macular degeneration.- records requested for last exam Recommended avoiding Maldivian. He has stopped drinking soda and eating [...] is related to his diet.). Recommended avoiding Maldivian. He has stopped drinking soda and eating cookies. Diabetes will be reassessed in 3 months. Assessment & Plan (10/23/2019 12:15 PM CDT): Diabetes is newly identified. Continue current treatment regimen. Reminded to bring in blood sugar diary at next visit. Dietary recommendations for ADA diet. Regular aerobic exercise. Mail Messenger referral. Has sail repairer appointment in November. Will hold on medication [...] Cerebrovascular accident (CVA) 03/12/2018 10/14/2020 Overview (03/12/2018): 2010 Assessment & Plan (09/04/2018 4:54 PM CDT): [...] medication. Assessment & Plan (07/15/2017 1:10 PM ARCHITECTURAL DRAFTSMAN): Continues with the Citalopram. Has on occasion increased the buspar to TID. But feeling well. Assessment & Plan (04/12/2017 10:13 AM ARCHITECTURAL DRAFTSMAN): Enjoying snf. Still active with leather and teaching. Walking [...] appointment. Assessment & Plan (07/15/2017 1:08 PM ARCHITECTURAL DRAFTSMAN): Hypertension is well controlled. . Continue current treatment regimen. Regular aerobic exercise. Blood pressure will be reassessed in 3 months. Assessment & Plan (04/12/2017 9:27 AM ARCHITECTURAL DRAFTSMAN): Hypertension is well controlled. . Continue current treatment regimen. Weight loss. Regular aerobic exercise. Blood pressure will be reassessed in 3 months. Assessment & Plan (10/30/2016 2:58 PM CDT): Hypertension is Well controlled. . Continue current treatment regimen. Blood pressure will be reassessed in 3 months. Immunizations Immunization Administration Dates Next Due Influenza, [...] 03/29/2015 Pneumococcal Polysaccharide PPV23 03/14/2016 Sars-cov-2 Covid-19 Coleman, Honorio vee, Original/ignacio Ba.1 01/25/2024 Tdap 12/07/2023 ZOSTER Recombinant 12/19/2022,07/20/2022 Social History Tobacco Use Types Packs/Day Years [...] file Legal Sex Male 9:53 AM ARCHITECTURAL DRAFTSMAN Gender Identity Male 10/24/2019 10:41 AM CDT Sexual Orientation Straight 10/24/2019 10 :41 AM CDT Last Filed Vital Signs Vital Sign Reading [...] Description 02/17/2025 8:30 AM CDT Hospital Encounter [facility] [address] [place] [address] [place] [address] [facility] [address], [place] [address] 02/17/2025 8:30 AM CDT - 02/17/2025 9:00 AM CDT Surgery [facility] [address] [place] [address] [place] [address] [address] COLONOSCOPY Scheduled Procedures Name Priority Associated Diagnoses Date/Ti me COLONOSCOPY Personal history of colon polyps, unspecified 02/17/2025 8:30 AM CDT Procedures Procedure Name Priority Date/Time Associated Diagnosis [...] results best viewed via link to PDF [facility] Department of Pathology [address] [place], [place] [id number] Note to Patients: This report may contain [...] Final Report Patient Name: JOSSELYN CONRAD Address: [address] [place] [address] [place] [address]- Gender: M : 1950 (Age: 74) Service: Gastro Location: GI Lab Hospital #: [id number] Patient Type: [facility] Taken: 08/19/2024 Received: 08/19/2024 Accessioned: 08/19/2024 Reported: [...] bisected. All in D. T.A. Jovany Sarmiento, PGenoveva/Donny Jain M.D. REPORT IMAGES AND SCANNED DOCUMENTS, IF INCLUDED, ONLY VIEWABLE IN PDF VERSION OF REPORT The performance characteristics of some immunohistochemical stains, fluorescence in-situ hybridization tests and immunophenotyping by flow cytometry cited in this report (if any) were determined by the Surgical Pathology Department at [facility] as part of an ongoing quality system manager program and in compliance with federally mandated [...] characteristics determined by the Surgical Pathology Department [facility]. It has not been cleared or approved by the U. S. Food and Drug Administration. Note for decalcified specimens: This assay has not been validated on decalcified tissues. Results should be interpreted with caution given the possibility of false negativity on decalcified specimens us Matthew Hernandez MD LAB PATHOLOGY ORDERABLES Final Result PATHOLOGY [address] [place], [place] [id number] * Colonoscopy (08/19/2024 8:10 AM CDT) Anatomical Region Laterality Modality Other Narrative Procedure Note Matthew Hernandez MD - 08/19/2024 8:10 AM CDT [facility] Endoscopy Lab Patient Name: Josselyn Conrad Procedure Date: 08/19/2024 8:10 AM Date of : 1950 Admit Type: Outpatient Age: 74 Gender: Male Note Status: Finalized Attending MD: Matthew Hernandez M.D. Procedure Date: 08/19/2024 Procedure: Colonoscopy Indications: High risk colon cancer surveillance: Personalhistory of colonic polyps Providers: Matthew Hernandez M.D., Sobeida Segura CRNA (Anesthesia Staff), Micki Ram RN, Santana, Staff [employer] Information [employer] Officer Referring MD: Davian Rios M.D. Medicines: Monitored [...] piecemeal polypectomy. Procedure Code(s): --- Professional --- 84653, Colonoscopy, flexible; with ablation of tumor(s), polyp(s), or other lesion(s) (includespre- and post-dilation and guide wire passage, when performed) 51103, 59, Colonoscopy, flexible; with removal of tumor(s), polyp(s), or other lesion(s) by snare technique 74709, 59, Colonoscopy, flexible; with biopsy,single or multiple 62515, Colonoscopy, flexible; with directedsubmucosal injection(s), any substance Diagnosis Code(s): --- Professional --- Z86.010, Personal history of colonic polyps D12.3, Benign neoplasm of transverse colon (hepatic flexure or splenic flexure) D49.0, Neoplasm of unspecified behavior ofdigestive system D12.2, Benign neoplasm of ascending colon K64.4, Residual hemorrhoidal skin tags K57.30, Diverticulosis of large intestine without perforation or abscess without bleeding CPT copyright 2020 [employer]. All rights reserved. The codes documented in this report are preliminary and upon medical fee clerk reviewmay be revised to meet current compliance requirements. Matthew Hernandez M.D. 08/19/2024 9:44:54 AM Number of Addenda: 0 Note Initiated On: 08/19/2024 8:10 AM Matthew Hernandez MD ENDOSCOPY PROCEDURES Edit ed Result - Final * POCT glucose (08/19/2024 7:55 AM CDT) Glucose, POC 127 70 - 199 mg/dL POC Performer [id number] SARATH KIRAN Blood 08/19/2024 7:55 AM CDT 08/19/2024 7:55 AM CDT Matthew Hernandez MD LAB POCT ORDERABLES - DEV ICE Final Result SARATH KIRAN [address] [address] Department of [place] [address] * (ABNORMAL) eGFR (08/11/2024 7:12 AM CDT) eGFR 59(L) >=60 mL/min/1. 73 m2 Comment: [...] MD LAB BLOOD ORDERABLES Final Res ult [facility] ([place]ONAN) 1 [facility] Department of Laboratories [place], [place] [id number] * Differential, auto (08/11/2024 7:12 AM CDT) [...] revised on 2017. Monocyte pct 9.9 % [facility] ([place]) Comment: Interpretive Data [...] revised on 2017. Basophil pct 0.7 % [facility] ([place]) Comment: Interpretive Data Percent cell count reference ranges are not reported, since discordance with absolute values may lead to misinterpretation of CBC data. Current Interpretive Data was last revised on 2017. Blood 08/11/2024 7:12 AM CDT 08/11/2024 10:59 AM CDT us Satya Porter MD LAB BLOOD ORDERABLES Final Res ult SARATH [facility]ST ([place]) 1 [facility] [place] [address] * (ABNORMAL) Urinalysis reflex to microscopic and culture Urine (08/11/2024 7:12 AM CDT) Color, ur Yellow Yellow Clarity, ur Clear Clear [facility] MORALES ([place]) Specific gravity, ur 1.027 1.003 - 1.030 [facility] ([place]) pH, urine 5.5 [facility] ([place]) Comment: Interpretive Data U rine pH is affected by diet, medications, systemic acid-base disturbances, and renal tubular function. pH may affect urinary stone formation. For example, urine pH below 6.0 may help reduce the tendency for calcium phosphate stones and pH greater than 6.0 may reduce the tendency for uric acid stone formation. Source: [facility] [employer] Current Interpretive Data was last revised on [...] MICROBIOLOGY - GENERAL ORD ERABLES Final Result [facility] ([place]) 1 [facility] Department [place] [address] * CBC with auto differential (08/11/2024 7:12 [...] (TIMOTHY) MCHC 32.7 32.3 - 35.7 g/dL [facility] ([place]) RDW CV 14.0 11.1 - 14.9 % [facility] ([place]) RDW SD 45.6 35.7 - 48.1 fL [facility] ([place]) NRBC abs 0.00 0.00 - 0.01 K/cumm [facility] ([place]) Blood 08/11/2024 7:12 AM CDT 08/11/2024 10:59 AM CDT us Satya Porter MD LAB BLOOD ORDERABLES Final Res ult Performing Organization Address City/[facility]/ZIP Co de Phone Number [facility] ([place]) 1 [facility] [place] [address] * (ABNORMAL) Albumin Creatinine Ratio, Urine (08/11/2024 7:12 AM CDT) Albumin Ur 67.2 mg/L Comment: Interpretive Data No reference range established. Current interpretive data was last revised 2018. Testing performed by: [facility], [address] [place] [address]., [address] Creatinine Ur 189.3 mg/dL [facility] MAST (TIM[place]HY) Comment: Interpretive Data No reference range established. Current interpretive data was last revised 2018. Testing performed by: [facility], [address] [place] [address]., [address] Albumin Creatinine Ratio, Ur 35(H) 1 - 29 mg/g [facility] MAST (TIM[place]HY) Comment:Testing performed by : [facility], [address] [place] [address]., [address] Urine 08/11/2024 7:12 AM CDT 08/11/2024 4:56 PM CDT us Satya Porter MD LAB URINE ORDERABLES Final Res ult Performing Organization Address City/[facility]/ZIP Co de Phone Number [facility] ([place]) 1 [facility] [place] [address] * Vitamin D 25 hydroxy (08/11/2024 7:12 AM CDT) Vitamin D 25-OH 51 30 - 80 ng/mL Blood 08/11/2024 7:12 AM CDT 08/11/2024 10:59 AM CDT Satya Porter MD LAB BLOOD ORDERABLES Final Res ult [facility] ([place]) 1 [facility] [place] [address] * Erythrocyte sedimentation rate (08/11/2024 7:12 AM CDT) Erythrocyte sedimentation rate 16 1 - 20 mm/hr Blood 08/11/2024 7:12 AM CDT 08/11/2024 10:59 AM CDT Satya Porter MD LAB BLOOD ORDERABLES Final Res ult Performing Organization Address City/[facility]/ZIP Co de Phone Number [facility]ST ([place]) 1 [facility] [place] [address] * Uric acid (08/11/2024 7:12 AM CDT) Uric acid 4.9 3.0 - 8.0 mg/dL Blood 08/11/2024 7:12 AM CDT 08/11/2024 10:59 AM CDT Satya Porter MD LAB BLOOD ORDERABLES Final Res ult Performing Organization Address City/[facility]/ZIP Co de Phone Number [facility] ([place]) 1 [facility] [place] [address] * TSH (08/11/2024 7:12 AM CDT) Thyroid Stimulating Hormone 1.17 0.30 - 4.20 mcIUnit/mL Blood 08/11/2024 7:12 AM CDT 08/11/2024 10:59 AM CDT us Satya Porter MD LAB BLOOD ORDERABLES Final Res ult Performing Organization Address City/[facility]/ZIP Co de Phone Number [facility] ([place]) 1 [facility] [place] [address] * PSA diagnostic (08/11/2024 7:12 AM CDT) Pathologist [facility] PSA-Total 0.56 <=6.20 ng/mL Comment: Interpretive Data [...] 7:12 AM CDT 08/11/2024 10:59 AM CDT Davian Rios MD LAB BLOOD ORDERABLES Final Result Performing Organization Address [facility] Co de Phone Number [facility] ([place]) 1 [facility] [place] [address] * PTH (08/11/2024 7:12 AM CDT) Pathologist [facility] PTH 61 15 - 65 pg/mL Blood 08/11/2024 7:12 AM CDT 08/11/2024 10:59 AM CDT Satya Porter MD LAB BLOOD ORDERABLES Final Res ult Performing Organization Address City/[facility] Co de Phone Number [facility] ([place]) 1 [facility] [place] [address] * (ABNORMAL) Hemoglobin A1c (08/11/2024 7:12 AM CDT) Hgb A1C 6.7(H) 4.0 - 5.6 % Estimated Average Glucose 146 mg/dL [facility] ([place]) Comment: The ADA recommends reporting an estimated Average Glucose (eAG) with all Hemoglobin A1c results using the equation derived from a study of 507 normal and diabetic adults. Minority populations were underrepresented and children were not included. (Diabetes Care 31:8368-8557, 2008). The eAG is not equivalent to a fasting glucose. Blood 08/11/2024 7:12 AM CDT 08/11/2024 10:59 AM CDT us Satya Porter MD LAB BLOOD ORDERABLES Final Res ult [facility] ([place]) 1 [facility] Department [place] [address] * (ABNORMAL) Lipid panel (08/11/2024 7:12 AM [...] on 2018. Triglycerides 267(H) <=149 mg/dL [facility] ([place]) Comment: Interpretive Data [...] 3. Misbah Grady et al. ANALILIA Cardiol. 2020 September 25;5(5):540-548. doi: [email or web address] Current Interpretive Data was [...] Rios MD LAB BLOOD ORDERABLES Final Result [facility] ([place]) 1 [facility] [place] [address] * Comprehensive metabolic panel (08/11/2024 7:12 AM [...] classification and Diagnosis of Diabetes Diabetes Care 2021; 46: S19-S40. Current interpretive data was last [...] Final Res ult [facility] ([place]) 1 [facility] [place] [address] * CT Lung Cancer Screening (03/10/2024 8:46 [...] Electronically signed by: Jacinto Alcantar II, D.O. Merlyn Quinn MD IMG CT PROCEDURES Final Result [...] AM CDT) Hep C Ab Negative Negative [facility] Blood specimen (specimen) 03/12/2018 11:35 AM CDT 03/12/2018 12:14 PM CDT Kemi CLEMENS CH - 03/12/2018 1:03 PM CDT Joanne Olson NP LAB MICROBIOLOGY - GENERAL O RDERABLES Final Result [facility] KIRAN [address] [facility] Department [place] [address] from Last 3 Months or Most Recently Relevant to Health Maintenance Insurance MEDICARE [facility] Address: [address] [address] COMMERCIAL GENERIC MEDICARE COMMERCIAL GENERIC MEDICARE [facility] Care Teams Embossograph Operator Relationship Specialty [place] [address] [facility] [address] [place] [address] PCP - General Family Medicine 07/13/21 James Ram MD [address] [place] [address] Referring Physician Ophthalmology 03/12/18 Dina Gamino MD [address] [place] [address] Consulting Physician Neurology 10/24/18 Satya Porter MD [address] [place] [address] Consulting Physician Nephrology 01/23/20 Jennifer Porter MD [address] [place] [address] Consulting Physician Cardiology 02/13/20 Rey Meier MD [address] [place] [address] Consulting Physician Ophthalmology 12/22/21 Robbi Ramey Jr., MD [address] [facility] [address] [place] [address] Dermatology 12/22/21 Darius Camp MD [address] [place] [address] Consulting Physician Orthopedic Surgery 09/10/22 [place] [address] [facility] [address] [place] [address] Consulting Physician Pulmonary Disease 01/02/24 Pete Elliott MD [address] [place] [address] Consulting Physician Ophthalmology 03/20/24
--- OUTSIDE RECORDS SUMMARY | 2024-09-09 17:53 | XMS_ITS | Clinical Summary ---
Author Organization [facility] Address [address] [place] [address] Care Team Providers Care Intermediate Teacher Name Role Phone Unavailable Primary Care Provider Unavailabl e Source Comments [facility],non-owned Affiliates and Associated Physician Practices is amultiple site organization consisting of ambulatory clinics and hospital sitesin [place], [place], [place] and [place]. This disclosure is being madepursuant to the Care Everywhere program and may not contain all information available regarding this patient. 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 Gender Identity Not on file Sexual Orientation Not on file Plan of Treatment Health Maintenance Due Date Last Done Comments COLOGUARD (AGES 45-75) - COL ON CA SCREENING 1950 COLON MONITORING 1950 COLONOSCOPY - COLON CA SCREENING 1950 CT COLONOGRAPHY - COLON CA SCREENING 1950 Colorectal Cancer Screening 1950 FIT - COLON CA SCREENING 1950 FLEX SIG - COLON CA SCREENING 1950 LIPID TESTING 1950 MEDICARE AWV 12 MONTHS 1950 HEPATITIS C SCREENING 02/01/1968 DTAP/TDAP/TD VACCINES (1 - Tdap) 1969 PNEUMOCOCCAL VACCINE 50+ (1 of 1 - PCV) 02/06/2000 ZOSTER VACCINE (1 of 2) 02/06/2000 COVID-19 VACCINE ( - 2023-2 5 season) 2024 DEPRESSION SCREENING 05/28/2024 INFLUENZA VACCINE (Season Ended) 2025 Respiratory Syncytial Virus (RSV) Vaccine Pt: or over 60 yrs (1 - 1-dose 75+ series) 2025 HEPATITIS B VACCINE Aged Out No longe r eligible based on patient's age to complete this topic HIB VACCINE Aged Out No longer eligi ble based on patient's age to complete this topic HPV VACCINE Aged Out No longer eligi ble based on patient's age to complete this topic MENINGOCOCCAL (Group B) VACC INE SHARED DECISION-MAKING Aged Out No longer eligibl e based on patient's age to complete this topic MENINGOCOCCAL GROUPS A/C/Y/W VACCINE Aged Out No longer eligible b ased on patient's age to complete this topic [place] [address] MEDICARE [facility]
--- OUTSIDE RECORDS SUMMARY | 2024-09-09 17:53 | XMS_ITS | CONTINUITY OF CARE DOCUMENT ---
Author Name kimberlee mohan Address Unknown Organization [facility] Address [address] [place] [address] Phone [phone] Care Team Providers Care Mirror Finishing Machine Operator Name Role Phone German OCHOA, Jennifer Unavailable ARMANDO CLARK MD Unavailable [phone] ARMANDO CLARK MD Unavailable PROBLEMS Condition Status Date Provider Notes S/P Biotronik (MRI Safe) ILR - BioMonitor III active Trent Haider Atrial flutter active Pete Bran CVA active Pete Bran Prediabetes active Pete Bran Syncope--Echo EF nl 09/2021 active Jennifer hollins MD RBBB active Pete Bran PFO active Pete Bran Depression active Jennifer Porter MD Hyperlipidemia active Jennifer Porter MD Macular degeneration, now legally blind active Jennifer Porter MD ENCOUNTERS Date Type Provider Location Encounter Diagnosis - In-person encounter Office Visit Jennifer Porter MD [facility] - In-person encounter Office Visit Jennifer Porter MD [facility] - In-person encounter Office Visit Jennifer Porter MD [facility] - In-person encounter Office Visit Jennifer Porter MD [facility] - In-person encounter Office Visit Jennifer Porter MD [facility] Syncope--Echo EF nl 09/2021 - In-person encounter Office Visit Jennifer Porter MD [facility] - In-person encounter Office Visit Jennifer Porter MD [facility] Syncope--Echo EF nl 2DepressionH yperlipidemiaMacul ar degeneration, now legally blind - In-person encounter Office Visit Jennifer Porter MD [facility] - In-person encounter Office Visit Jennifer Porter MD [facility] - In-person encounter Office Visit Jennifer Porter MD [facility] Atrial flutterCVAPrediabe tesSyncope--Echo EF nl BBBPFO VITAL SIGNS Date Observation Value Provider Body Mass Index (Ratio) 33.61 kg/m2 Joel Porter MD blood pressure, diastolic 76 mm[Hg] Pasc[place] en [facility] blood pressure, systolic 145 mm[Hg] Angely lynn [facility] blood pressure, cuff size regular [place] en [facility] oxygen saturation, oximetry 95 % [facility] pulse rate 67 /min [facility] weight E&M 241 [lb_av] [facility] height E&M 71 [in_i] [facility] Body Mass Index (Ratio) 32.35 kg/m2 Joel Porter MD blood pressure, cuff size regular Ke rri Gruenenfeldmandy blood pressure, diastolic 70 mm[Hg] Ke rri Gruenenfelder blood pressure, systolic 130 mm[Hg] Rose ri Maricel oxygen saturation, oximetry 94 % Lamar Washingtonconcettamandy respiratory rate E&M 12 /min Lamar wilsonelder pulse rate 59 /min Lamar Orozco er weight E&M 232 [lb_av] Lamar Orozco height E&M 71 [in_i] Lamar Orozco [facility] Body Mass Index (Ratio) 33.47 kg/m2 Joel Porter MD blood pressure, diastolic 74 mm[Hg] Sandra nkLog blood pressure, systolic 133 mm[Hg] Edwina kLog blood pressure, cuff size regular Ja rret blood pressure, diastolic 74 mm[Hg] Ja [facility] blood pressure, systolic 133 mm[Hg] Jorge [facility] pulse rate 52 /min Ramo respiratory rate E&M 12 /min Ramo oxygen saturation, oximetry 96 % [facility] weight E&M 240 [lb_av] Ramo height E&M 71 [in_i] Ramo Body Mass Index (Ratio) 33.89 kg/m2 Joel Porter MD pulse rate 54 /min Mayra Veloz blood pressure, diastolic 75 mm[Hg] Martha Veloz blood pressure, systolic 139 mm[Hg] Any en Veloz oxygen saturation, oximetry 95 % Mayra Veloz weight E&M 243 [lb_av] Mayra Veloz blood pressure, cuff size large Martha eVloz height E&M 71 [in_i] Mayra Veloz Body Mass Index (Ratio) 33.89 kg/m2 Joel Porter MD blood pressure, cuff size large Pola Connelly blood pressure, diastolic 84 mm[Hg] Pola Sancheznecaseyeld blood pressure, systolic 135 mm[Hg] Rose Washingtonelder oxygen saturation, oximetry 95 % Lamar Washingtonelder respiratory rate E&M 16 /min Lamar bullocknfelder pulse rate 64 /min Lamar Orozco lder weight E&M 243 [lb_av] Lamar Orozco lder height E&M 71 [in_i] Lamar Orozco lder Body Mass Index (Ratio) 32.91 kg/m2 Joel Porter MD blood pressure, diastolic 76 mm[Hg] Ca therine Lorenzo blood pressure, systolic 129 mm[Hg] Cat herine [place] oxygen saturation, oximetry 99 % Zeynep [place] pulse rate 64 /min Zeynep Lorenzo respiratory rate E&M 16 /min Catheri ne [place] weight E&M 236 [lb_av] Zeynep Lorenzo blood pressure, cuff size regular Ca therine Lorenzo height E&M 71 [in_i] Zeynep Lorenzo Body Mass Index (Ratio) 32.21 kg/m2 Joel Porter MD blood pressure, diastolic 66 mm[Hg] Sandra nkLogalexey blood pressure, systolic 124 mm[Hg] Edwina Huntogalexey blood pressure, diastolic 66 mm[Hg] Lynn Hope blood pressure, systolic 124 mm[Hg] Richard Hope oxygen saturation, oximetry 96 % Phillip Hope pulse rate 60 /min Phillip loza blood pressure, cuff size regular Lynn Hope respiratory rate E&M 16 /min Yulisa Hope weight E&M 231 [lb_av] Phillip loza height E&M 71 [in_i] Phillip loza Body Mass Index (Ratio) 32.07 kg/m2 Joel Porter MD blood pressure, cuff size large Ke rri Gruenenfelder blood pressure, diastolic 70 mm[Hg] Ke rri Gruenenfelder blood pressure, systolic 136 mm[Hg] Ker ri Gruenenfelder oxygen saturation, oximetry 96 % Lamar Gruenenfelder respiratory rate E&M 16 /min Lamar G ruenenfelder pulse rate 70 /min Lamar Gruenenfe lder weight E&M 230 [lb_av] Lamar Gruenenfe lder height E&M 71 [in_i] Lamar Gruenenfe lder Body Mass Index (Ratio) 30.96 kg/m2 Joel Porter MD blood pressure, cuff size large Ke rri Gruenenfelder blood pressure, diastolic 64 mm[Hg] Ke rri Gruenenfelder blood pressure, systolic 102 mm[Hg] Ker ri Gruenenfelder oxygen saturation, oximetry 98 % Lamar Gruenenfelder respiratory rate E&M 18 /min Lamar G ruenenfelder pulse rate 54 /min Laamr Gruenenfe lder weight E&M 222 [lb_av] Lamar Gruenenfe lder height E&M 71 [in_i] Lamar Gruenenfe lder Body Mass Index (Ratio) 29.45 kg/m2 Joel Porter MD blood pressure, diastolic 70 mm[Hg] Enoc Mitchell blood pressure, systolic 132 mm[Hg] Dotty Mitchell oxygen saturation, oximetry 97 % Preston Mitchell respiratory rate E&M 18 /min Odin Mitchell pulse rate 62 /min Preston anderson weight E&M 211.2 [lb_av] Preston cotto height E&M 71 [in_i] Preston anderson ALLERGIES Allergy Name Onset Date Reaction Criticality Status CLINDAMYCIN High Criticality active HISTORY OF MEDICATION USE Medication Status Instructions Dates Provider Indications Com ments Xarelto 20 mg tablet active Take 1 tablet by mouth every evening Lamar Connelly Anoro Ellipta 62.5-25 mcg/actuation blister with device completed - Siddharth Ahlarryzaclarisa albuterol sulfate 90 mcg/actuation HFA aerosol inhaler active Siddharth Toro Xarelto 20 mg tablet completed TAKE 1 TABLET BY MOUTH EVERY DAY WITH THE EVENING MEAL - Lamar Connelly trazodone 100 mg tablet active Siddharth Toro calcitriol 0.25 mcg capsule active Jennifer Porter MD Xarelto 20 mg tablet completed 1 tablet every night - Lamar Connelly PreserVision AREDS-2 250-90-40-1 mg capsule active once a day Preston Mitchell Tylenol 8 Hour 650 mg tablet extended release active as needed Preston Mitchell Fish Oil 360-1,200 mg capsule active 1 once a day Preston Mitchell ASPIRIN 325 MG ORAL TABLET completed one tab daily - Lamar Connelly buspirone 10 mg tablet active 1 tablet twice a day Preston Mitchell TRAZODONE HCL TABLET completed 2 tablet every night - Siddharth Toro pramipexole 0.5 mg tablet active 1 tablet in the AM, 2 in the PM Siddharth Toro simvastatin 40 mg tablet active 1 tablet once a day Preston Mitchell citalopram 40 mg tablet active 1 tablet once a day Preston Mitchell gabapentin 300 mg capsule active 1 tablet three times a day Preston Mitchell SOCIAL HISTORY Date Observation Value Provider smoking, year quit 2006 Sdidharth gomez number of years as a smoker 20 a Siddharth Toro smoking history, tot al pack/day 2 ppd Siddharth Toro cigarette use yes Siddharth Toro smoking status Former smoker Siddharth Pantoja i smoking, year quit 2006 Siddharth gomez number of years as a smoker 20 a Siddharth Toro smoking history, tot al pack/day 2 ppd Siddharthrohan Toro cigarette use yes Siddharth Toro smoking status Former smoker Siddharth Pantoja i social history reviewed E&M revi ewed - no changes required Siddharthrohan Pantoja Exercise counseling yes Mayraen rizzo smoking, year quit 2006 Mayra Will iams number of years as a smoker 20 a Mayra Veloz smoking history, tot al pack/day 2 ppd Mayra Veloz cigarette use yes Mayra Veloz smoking status Former smoker Mayra Kelly s social history reviewed E&M revi ewed - no changes required Siddharth Toro number of years as a smoker 20 a Lamar Connelly smoking history, tot al pack/day 2 ppd Lamar Yeunger smoking, year quit 2006 Lamar robison Exercise counseling yes Lamar resendiz cigarette use yes Lamar Washington elder smoking status Former smoker Lamar whippleer social history reviewed E&M revi ewed - no changes required Siddharth Pantoja cigarette use yes Zeynep Lorenzo smoking status Former smoker Zeynep Ot is social history reviewed E&M revi ewed - no changes required Jennifer Porter MD social history E&M S moking History: Chandana olson is a former smoker. Jennifer Porter MD cigarette use yes Jennifer Camacho smoking status Former smoker Jennifer Porter MD social history reviewed E&M revi ewed - no changes required Jennifer Porter MD Exercise counseling yes Boydmandy dhaval Hope smoking status Former smoker Kenia Kapadiagray rowley social history E&M S moking History: Chandana olson is a former smoker. Keniajean KapadiaMorley social history reviewed E&M revi ewed - no changes required Kenia Morley cigarette use yes Lamar Padmini [facility] smoking status Former smoker Erik Monrealjose schwartz social history E&M S moking History: Chandana olson is a former smoker. Erik Hickman [place] social history reviewed E&M revi ewed - no changes required Erik Hickman En cigarette use yes Lamar Henaourbano whiting number of grandchildren Jennifer Porter MD N ishan Bran cigarette use yes Pete nielsen smoking status Former smoker Pete estrella social history E&M S moking History: Chandana olson is a former smoker. Pete Bran social history reviewed E&M revi ewed - no changes required Pete Bran FAMILY HISTORY Family Member Condition Mother Family History of Di abetes: INSURANCE PROVIDERS Payer name Policy type / Coverage type [place] red libertarian ID [employer] Commercial insura mee [employer] [id number] [place] MEDICARE Medicare [id number] ADVANCE DIRECTIVES Name Date DISCUSSED - NO DECISION MADE TREATMENT PLAN Date Name Performer [id number],S, Siddharth Ahmedza i [id number],S, Siddharth Ahmedza i [id number],S, Siddharth Ahmedza i [id number],S, Siddharth Ahmedza i [id number],B, Siddharth Ahmedza i [id number],S, Siddharth Ahmedza i [id number],S, Siddharth Ahmedza i [id number],S, Siddharth Ahmedza i [id number],B, Siddharth Ahmedza i [id number],S, Siddharth Ahmedza i [id number],B, Siddharth Ahmedza i [id number],S, Siddharth Ahmedza i [id number],B, Siddharth Ahmedza i [id number],S, Siddharth Ahmedza i [id number],S, Siddharth Ahmedza i [id number],S, Siddharth Ahmedza i [id number],S, Siddharth Ahmedza i [id number],S, Siddharth Ahmedza i [id number],B, Siddharth Ahmedza i [id number],S, Siddharth Ahmedza i [id number],S, Jennifer Porter MD [id number],S, Jennifer Porter MD [id number],S, Jennifer Porter MD [id number],B, Jennifer Porter MD Cardiology Siddharth Ahmedzai Cardiology Siddharth Ahmedzai Cardiology Siddharth Ahmedzai Cardiology Siddharth Ahmedzai Cardiology Siddharth Ahmedzai Cardiology: H is updated medication list for this problem includes: Simvastatin 40 Mg Tablet (Simvastatin) ..... 1 tablet once a day Siddharth Ahmedzai Cardiology Siddharth Ahmedzai Cardiology Siddharth Ahmedzai Cardiology: H is updated medication list for this problem includes: Simvastatin 40 Mg Tablet (Simvastatin) ..... 1 tablet once a day Orders: L IPID PANEL (2270) Siddharth Ahmedzai Cardiology Siddharth Ahmedzai Cardiology Siddharth Ahmedzai Cardiology Siddharth Ahmedzai Cardiology Siddharth Ahmedzai Cardiology Siddharth Ahmedzai Cardiology Siddharth Ahmedzai Cardiology Siddharth Ahmedzai Cardiology Siddharth Ahmedzai Cardiology Siddharth Ahmedzai Cardiology Siddharth Ahmedzai Cardiology Siddharth Ahmedzai Cardiology Siddharth Ahmedzai Cardiology Siddharth Ahmedzai Cardiology Siddharth Ahmedzai Cardiology Siddharth Ahmedzai Cardiology Siddharth Ahmedzai Cardiology Siddharth Ahmedzai Cardiology Siddharth Ahmedzai Cardiology Siddharth Ahmedzai Cardiology Siddharth Ahmedzai Cardiology Siddharth Ahmedzai Cardiology Siddharth Ahmedzai Cardiology Jennifer Porter MD Cardiology Jennifer Porter MD Cardiology Jnenifer Porter MD Cardiology Jennifer Porter MD Cardiology Follow up [facility] Follow [facility] Follow up [facility] Follow up Enoc [facility] Follow up [facility] Follow up Enoc Hickman [place] Cardiology:Seen on e vent monitor. D iscussed ILR implant P atient agrees to proceed. W ill start OAC. Patient expressed difficulty affording OAC, gave Xarelto 20 mg once daily samples. Pete Lambros Cardiology:Discussed OAC given aflutter seen on monitor. W ill start OAC. P atient expressed difficulty affording OAC, gave Xarelto 20 mg once daily samples. Pete Lambros Cardiology:Seen on e vent monitor. D iscussed ILR implant P atient agrees to proceed. W ill start OAC. Patient expressed difficulty affording OAC, gave Xarelto samples. Pete Lambros Cardiology:Discussed OAC given aflutter seen on monitor. W ill start OAC. P atient expressed difficulty affording OAC, gave Xarelto samples. Pete Lambros Cardiology Pete Lambros Cardiology Pete Lambros Cardiology Pete Hinsonros Date Name HEMOGLOBIN A1c LIPID PANEL Complete Echo Loop Rec Implant - S [facility] HISTORY OF PROCEDURES Procedure Date Procedure Name Provider Procedure Notes S tatus Complex e/m visit add on Jennifer Porter MD completed EKG Jennifer Porter MD completed EKG Jennifer Porter MD completed EKG Jennifer Porter MD completed EKG Jennifer Porter MD completed
--- OUTSIDE RECORDS SUMMARY | 2024-09-09 17:53 | XMS_ITS | Encounter Summary ---
Author Organization [facility] Address [address] [place] [address] Care Team Providers Care Regulatory Affairs Spec Name Role Phone Unavailable Primary Care Provider Unavailabl e Encounter Details Date Type Department Care Team (Late st Contact Info) Description 04/24/2023 Lab Requisition [facility] - DermPath Lab [address] [place] [id number] Robbi Ramey Jr., MD [address] [place] [address] Social History Tobacco Use Types Packs/Day Years Used Date Smoking Tobacco: Never Assessed Sex and Gender Information Value Date Recorded Sex Assigned at Not on file 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 Gender Identity Not on file Sexual Orientation Not on file documented as of this encounter Plan of Treatment Not on file documented as of this encounter Procedures Procedure Name Priority Date/Time Associated Diagnosis Comments DERMATOPATHOLOGY Routine 04/23/2023 12:0 0 AM VARNISHER APPRENTICE documented in this encounter Results * DERMATOPATHOLOGY (04/23/2023 12:00 AM VARNISHER APPRENTICE) Case Report Dermatopathology Report Case: [id number] Authorizing Provider: Robbi Ramey Jr., MD Collected: 04/23/2023 12:00 AM Ordering Location: [facility] DermPath Lab Received: 04/24/2023 01:29 PM Pathologist: Lurdes Smith MD Specimens: A) - Skin, right radial dorsal hand A B) - Skin, right radial dorsal hand B C) - Skin, left radial dorsal hand 4:08 PM VARNISHER APPRENTICE DERMATOPATHOLOGY LABORATORY Final Diagnosis Specimen A. SKIN, right radial dorsal hand A: BENIGN VERRUCOUS KERATOSIS (L82.1) EPIDERMAL NECROSIS SUGGESTIVE OF EXCORIATION (L98.499) (see comment) Specimen B. SKIN, right radial dorsal hand B: SQUAMOUS PROLIFERATION (D48.5) (see microscopic description and comment) Specimen C. SKIN, left radial dorsal hand: SQUAMOUS PROLIFERATION (D48.5) (see microscopic description and comment) 3 4:08 PM [facility] DERMATOPATHOLOGY LABORATORY Clinical History A-C: Inflamed Seborrheic Keratosis vs. Verruca Vulgaris vs. Squamous Cell Carcinoma 3 4:08 PM [facility] DERMATOPATHOLOGY LABORATORY Gross Description Specimen A: Received is one formalin filled container labeled with the patient's name and designated right radial dorsal hand A. The specimen consists of a shave biopsy measuring 7x6x1 mm. Jar 0. Specimen B: Received is one formalin filled container labeled with the patient's name and designated right radial dorsal hand B. The specimen consists of a shave biopsy measuring 12x9x2 mm. Jar 0. Specimen C: Received is one formalin filled container labeled with the patient's name and designated left radial dorsal hand. The specimen consists of a shave biopsy measuring 12x6x2 mm. Jar 0. 3 4:08 PM [facility] DERMATOPATHOLOGY LABORATORY Microscopic Description Specimen A. SKIN, right radial dorsal hand A: Sections show hyperkeratosis, papillomatosis, hypergranulosis, and acanthosis. These histological findings can be seen in a verruca vulgaris or a seborrheic keratosis. The epidermis is focally necrotic and covered with a scale-crust. There is fibrin at the base. COMMENT: Given the superficial nature of the biopsy specimen, a deeper dermal process cannot be excluded. Specimen B. SKIN, right radial dorsal hand B: Sections show maturational disarray and nuclear pleomorphism of keratinocytes extending throughout the full thickness of the specimen. There is focal parakeratosis. The base of this lesion is not visualized. Additional deeper sections were obtained and reviewed. COMMENT: The histological differential diagnosis includes a prurigo nodule, which is somewhat favored, an irritated and inflamed benign keratosis, an actinic keratosis, and squamous cell carcinoma. Specimen C. SKIN, left radial dorsal hand: Sections show maturational disarray and nuclear pleomorphism of keratinocytes extending throughout the full thickness of the specimen. There is focal parakeratosis. The base of this lesion is not visualized. Additional deeper sections were obtained and reviewed. COMMENT: The histological differential diagnosis includes a prurigo nodule, which is somewhat favored, an irritated and inflamed benign keratosis, an actinic keratosis, and squamous cell carcinoma. 3 4:08 PM [facility] DERMATOPATHOLOGY LABORATORY Disclaimer An external and internal positive and negative controls are appropriate for the histochemical, immunohistochemical and immunofluorescence stain(s) in this case (if any), except where stated explicitly. The performance characteristics of the stain(s) cited in this report were developed and its performance characteristic determined by the Dermatopathology Laboratory at [facility], directed by Dr. Vicky Duran. These tests need not be, and therefore are not, approved by the [place] Food and Drug Administration. The tests are used for clinical purposes. Billing Codes Specimen Charges Stain Charges 16919 06753 11267 1 1 1 3 4:08 PM VARNISHER APPRENTICE DERMATOPATHOLOGY LABORATORY Embedded Images 3 4:08 PM VARNISHER APPRENTICE DERMATOPATHOLOGY LABORATORY Pathology/Cytology TISSUE SPECIMEN FROM SKIN / Unknown 04/23/2023 04/24/2023 1:29 PM VARNISHER APPRENTICE Miscellaneous samples (specimen) TISSUE SPECIMEN FROM SKIN / Unknown 04/23/2023 04/24/2023 1:29 PM VARNISHER APPRENTICE Miscellaneous samples (specimen) TISSUE SPECIMEN FROM SKIN / Unknown 04/23/2023 04/24/2023 1:29 PM VARNISHER APPRENTICE Robbi Ramey Jr., MD LAB - PATHOLOGY/CYTOLOG Y ORDERABLES Final Result DERMATOPATHOLOGY LABORATORY [facility] - Department of Dermatology [address] [place] [address], [facility] [phone] documented in this encounter Visit Diagnoses Not on filedocumented in this encounter
--- OUTSIDE RECORDS SUMMARY | 2024-09-09 17:53 | XMS_ITS | Encounter Summary ---
Author Organization [facility] Address [address] [place] [address] Care Team Providers Care Cushion Gum Applicator Name Role Phone Unavailable Primary Care Provider Unavailabl e Encounter Details Date Type Department Care Team (Late st Contact Info) Description 05/19/2021 Lab Requisition [facility] DermPath Lab [address] [place] [id number] Robbi Ramey Jr., MD [address] [place] [address] Social History Tobacco Use Types Packs/Day Years Used Date Smoking Tobacco: Never Assessed Sex and Gender Information Value Date Recorded Sex Assigned at Not on file Legal Sex Male 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 Gender Identity Not on file Sexual Orientation Not on file documented as of this encounter Plan of Treatment Not on file documented as of this encounter Procedures Procedure Name Priority Date/Time Associated Diagnosis Comments DERMATOPATHOLOGY Routine 05/18/2021 12:0 0 AM BUSINESS PROCESS ENGINEER documented in this encounter Results * DERMATOPATHOLOGY (05/18/2021 12:00 AM BUSINESS PROCESS ENGINEER) Case Report Dermatopathology Report Case: [id number] Authorizing Provider: Robbi Ramey Jr., MD Collected: 05/18/2021 12:00 AM Ordering Location: [facility] DermPath Lab Received: 05/19/2021 01:11 PM Pathologist: Lureds Smith MD Specimen: Skin, left superior parietal scalp 11:20 AM BUSINESS PROCESS ENGINEER DERMATOPATHOLOGY LABORATORY Final Diagnosis Specimen A. SKIN, left superior parietal scalp: SQUAMOUS CELL CARCINOMA, WELL DIFFERENTIATED (C44.42) 11:20 AM BUSINESS PROCESS ENGINEER DERMATOPATHOLOGY LABORATORY Clinical History Squamous cell carcinoma vs basal cell carcinoma. . 11:20 AM [facility] DERMATOPATHOLOGY LABORATORY Gross Description Specimen A: Received is one formalin filled container labeled with the patient's name and designated left superior parietal scalp. The specimen consists of a shave biopsy measuring [id number]. Jar 0. 11:20 AM [facility] DERMATOPATHOLOGY LABORATORY Microscopic Description Specimen A. SKIN, left superior parietal scalp: Arising in the epidermis and extending into the dermis there are irregularly shaped aggregates of keratinocytes showing evidence of premature cornification. 11:20 AM [facility] DERMATOPATHOLOGY LABORATORY Disclaimer An external and internal positive and negative controls are appropriate for the histochemical, immunohistochemical and immunofluorescence stain(s) in this case (if any), except where stated explicitly. The performance characteristics of the stain(s) cited in this report were developed and its performance characteristic determined by the Dermatopathology Laboratory at [facility], directed by Dr. Vicky Duran. These tests need not be, and therefore are not, approved by the [place] Food and Drug Administration. The tests are used for clinical purposes. Billing Codes Specimen Charges Stain Charges 43314 1 11:20 AM [facility] DERMATOPATHOLOGY LABORATORY Embedded Images 11:20 AM [facility] DERMATOPATHOLOGY LABORATORY Pathology/Cytolog y TISSUE SPECIMEN FROM SKIN / Unknown 05/18/2021 05/19/2021 1:11 PM BUSINESS PROCESS ENGINEER Robbi Ramey Jr., MD LAB - PATHOLOGY/CYTOLOG Y ORDERABLES Final Result DERMATOPATHOLOGY LABORATORY [facility] - Department of Dermatology [address] [place] [address], [facility] [phone] documented in this encounter Visit Diagnoses Not on filedocumented in this encounter
[2024-09-09 18:08] LABS: Basophils Absolute Auto 0.1 K/mm3 (0.0-0.1); Basophils Percent Auto 0.8 % (0.2-1.2); Eosinophils Absolute Auto 0.2 K/mm3 (0-0.3); Eosinophils Percent Auto 2.4 % (0-4.4); Hematocrit 44.1 % (42.0-52.0); Hemoglobin 14.1 g/dL (14.0-18.0); Immature Granulocyte Absolute 0.02 K/mm3 (0.00-0.031); Immature Granulocyte Percent A 0.2 % (0-0.5); Lymphocytes Absolute Auto 2.94 K/mm3 (0.9-3.2); Lymphocytes Percent Auto 33.5 % (18.3-44.2); Mean Corpuscular Hemoglobin 29.5 pg (26-34); Mean Corpuscular Volume 92.3 fl (80-100); Mean Platelet Volume 10.7 fl (7.4-10.4); Monocytes Absolute Auto 0.8 K/mm3 (0.1-0.6); Monocytes Percent Auto 9.2 % (2.6-8.5); Neutrophils Absolute Auto 4.7 K/mm3 (1.3-6.7); Neutrophils Percent Auto 53.9 % (45.5-73.1); Platelet Count Result 203 k/mm3 (150-375); Red Blood Count 4.78 M/mm3 (4.6-6.20); Red Cell Distribution Width 13.3 % (11.5-14.5); White Blood Count 8.8 K/mm3 (4.5-10.0)
[2024-09-09 18:24] LABS: Partial Thromboplastin Time 25.5 Seconds (22.3-36.8); Prothrombin Time 13.6 Seconds (11.1-14.7)
[2024-09-09 18:32] LABS: Anion Gap 10 mmol/L (4-12); Blood Urea Nitrogen 21 mg/dL (9-20); Calcium 9.2 mg/dL (8.4-10.2); Carbon Dioxide 28 mmol/L (22-30); Chloride 102 mmol/L (98-107); Estimated CRCL calculation 60 ml/min; Estimated Glomerular Filt Rate 51; Glucose 110 mg/dL (65-110); Potassium 4.1 mmol/L (3.4-5.0); Sodium 140 mmol/L (137-145)
--- NOTE | 2024-09-09 19:15 | PC.NURSE ---
Bedside report given to this RN by MARV Patton. Pt. in room with at bedside. All questions answered by this RN at this time.
--- NOTE | 2024-09-09 19:30 | PC.NURSE ---
Pt. pressed call light for urinal. Pt. given urinal by this RN. This RN offered to help pt. but he denied help. Pt. able to stand independently with at bedside. Blood on the collar of pt. shirt. Pt. offered a gown, which he denied.
--- NOTE | 2024-09-09 20:00 | PC.NURSE ---
alerted this RN that pt. has missed his home medication for restless leg syndrome. states they have the medication with them and was wondering he if he could take his dose. This RN asked pt. provider, VASILIY Rogers, if pt. is able to take his home medication. VASILIY Rogers stated this was ok. Information relayed to pt. and pt. .
[2024-09-09 20:30] VITALS: BP 152/75; PULSE 56; RESP 17; O2SAT 95
[2024-09-09 21:00] VITALS: BP 151/88; PULSE 57; RESP 17; O2SAT 95
--- NOTE | 2024-09-09 21:05 | PC.NURSE ---
This RN went into pt. room to update the pt. that the provider is still waiting for the CT scan to be read, and that is the delay. Pt. remains at bedside and now pt. daughter is at bedside. Daughter very upset about the length of time this pt. has been in the ER and raised her voice at this RN verbalizing how upset she is that nobody has been down here to check on us. This RN let the daughter know that I have been in the room to check on them, she was not at bedside during those times. verbalized in agreement with this RN that staff has been in to room to check on them. Daughter remains very upset. RENATA Fitzpatrick notified and to bedside to speak with pt. and family members. VASILIY Rogers also notified and to bedside to provide update.
== END 2024-09-09 21:31 | disposition home or self-care (01) ==
PROVIDERS: Emergency Provider Physician Assistant
DX: S01.111A Laceration without foreign body of right eyelid and periocular area, initial encounter (principal); T14.8XXA Other injury of unspecified body region, initial encounter; J44.9 Chronic obstructive pulmonary disease, unspecified; Z86.73 Personal history of transient ischemic attack (TIA), and cerebral infarction without residual deficits; Z79.01 Long term (current) use of anticoagulants; K76.0 Fatty (change of) liver, not elsewhere classified; M50.322 Other cervical disc degeneration at C5-C6 level; M48.02 Spinal stenosis, cervical region; V43.63XA Car passenger injured in collision with pick-up truck in traffic accident, initial encounter
CPT/HCPCS: 36415; 70450; 71260; 72125; 74177; 80048; 85025; 85610; 85730; 99284; Q9967